=== PATIENT | male | born 1990 | race Hispanic/Latino ===

== ENCOUNTER 2017-04-21 08:57 | Emergency (ER) | payer BC ==
[2017-04-21 08:58] VITALS: BMI 31.8
[2017-04-21 09:21] VITALS: TEMP 97.9
[2017-04-21] MEDS ORDERED: Sodium Chloride 0.9% 500 ML IV STA (10:03)
--- NOTE | 2017-04-21 10:24 | ED PDOC ---
Arrival/HPI - General Chief Complaint: ENT Problem Time Seen by Provider: 04/21/17 10:01 Historian: Patient - History of Present Illness Narrative History of Present Illness (Text): 04/21/17 10:21 27 yo male w/o significant PMHx come in for evaluation of left earache gradually worsen for past 5 days. Pt reports, pain is localized over left ear, constant and for past few days worsen in intensity with radiation to parotid/ left facial area. Pt admits, was seen by PMD 3 days ago when was placed on Rx: Augment with initial improvement in left earache, developed mild left sided headache since yesterday, (+) chills. Otherwise, pt denies high fever, worse headache of life, visual changes, focal deficits, vertigo, dizziness, ear discharges, toothache, trismus, recent dental work, sore throat or tightness, neck pain or swelling, facial swelling, cough, CP, SOB, dyspnea, diaphoresis, denies any other active complaints. Ambulate to Ed for evaluation, appears in mild painful distress. Past Medical History - Provider Review Nursing Documentation Reviewed: Yes - Travel History Have you recently traveled outside [place] w/in the past 3 mons?: No - Past History Past History: No Previous - Infectious Disease Hx of Infectious Diseases: None - Tetanus Immunization Tetanus Immunization: Up to Date - Past Medical History Past Medical History: No Previous - Cardiac Hx Cardiac Disorders: No - Pulmonary Hx Respiratory Disorders: No - Neurological Hx Neurological Disorder: No - HEENT Hx HEENT Disorder: No - Renal Hx Renal Disorder: No - Endocrine/Metabolic Hx Endocrine Disorders: No - Hematological/Oncological Hx Blood Disorders: Yes Hx Hepatitis C: Yes - Integumentary Hx Dermatological Disorder: No Hx Basal Cell Carcinoma: No - Musculoskeletal/Rheumatological Hx Musculoskeletal Disorders: Yes Hx Falls: No Hx Fractures: Yes (job related injury fx r thumb 1 yr ago) - Gastrointestinal Hx Gastrointestinal Disorders: No - Genitourinary/Gynecological Hx Genitourinary Disorders: No - Psychiatric Hx Psychophysiologic Disorder: No Hx Depression: No Hx Emotional Abuse: No Hx Physical Abuse: No Hx Substance Use: Yes - Past Surgical History Past Surgical History: No Previous - Anesthesia Hx Anesthesia: No - Suicidal Assessment Feels Threatened In Home Enviroment: No Family/Social History - Physician Review Nursing Documentation Reviewed: Yes Family/Social History: No Known Family HX Smoking Status: Heavy Smoker > 10 Cigarettes Daily Hx Alcohol Use: No Hx Substance Use: Yes Substance used: heroin, past history Hx Substance Use Treatment: No Allergies/Home Meds Allergies/Adverse Reactions: Allergies No Known Allergies Allergy (Verified 04/21/17 09:21) Home Medications: Home Meds Medication Instructions Recorded Confirmed Amoxicillin 875 mg PO BID 04/21/17 04/21/17 Review of Systems - Review of Systems Constitutional: Normal Eyes: Normal ENT: Hearing Changes, Other (Left earache). absent: Tinnitus, TMJ Pain, Voice Changes, Sore Throat, Rhinorrhea Respiratory: Normal Cardiovascular: Normal Gastrointestinal: Normal Genitourinary Male: Normal Musculoskeletal: Normal Skin: Normal Neurological: Normal Endocrine: Normal Hemo/Lymphatic: Normal Psychiatric: Normal Physical Exam Vital Signs Reviewed: Yes Vital Signs Temp Pulse Resp BP Pulse Ox 04/21/17 12:46 78 17 145/89 100 04/21/17 09:16 97.9 F 80 18 147/91 H 97 Temperature: Afebrile Blood Pressure: Hypertensive Pulse: Regular Respiratory Rate: Normal Appearance: Positive for: Well-Appearing, Non-Toxic Pain Distress: Moderate (pain) Mental Status: Positive for: Alert and Oriented X 3 - Systems Exam Head: Present: Normocephalic Conjunctiva: Present: Normal Ears: Present: Normal (Right ear), Other (Left ear: (+) mod ear canal edema with scant yellowish discharges, unable to visalize TM. Tenderness over left tragus > Left mastoid tenderness. no erythema, no facial assymetry.) Mouth: Present: Moist Mucous Membranes, Normal Lips, Normal Teeth. No: Drooling , Trismus Pharnyx: Present: Other (uvula midline, no edema.). No: ERYTHEMA, EXUDATE, TONSILS ENLARGED, Strider Nose (Internal): Present: Normal Inspection Neck: Present: Trachea Midline. No: Meningeal Signs, MIDLINE TENDERNESS, JVD, Lymphadenopathy, Bruit Respiratory/Chest: Present: Clear to Auscultation, Good Air Exchange. No: Respiratory Distress, Accessory Muscle Use Cardiovascular: Present: Regular Rate and Rhythm, Normal S1, S2. No: Murmurs Abdomen: Present: Normal Bowel Sounds. No: Tenderness, Distention, Peritoneal Signs Upper Extremity: Present: Normal ROM, NORMAL PULSES. No: Deformity Lower Extremity: Present: Normal ROM. No: Edema, Deformity Neurological: Present: GCS=15, Speech Normal Skin: Present: Warm, Dry, Normal Color. No: Rashes Psychiatric: Present: Alert, Oriented x 3, Normal Concentration Medical Decision Making ED Course and Treatment: 04/21/17 On re-evaluation, pt is afebrile, hemodynamicaly stable. Non-toxic. Pt reports, moderate improvement in Left ear pain. NO facial edema or gross facial asymmetry noted. PulseOx 97% RA Head: AT/NC ENT: exam c/w left otitis media r/o otitis external. Minimal Left mastoid tenderness, no edema, no erythema. uvula midline, no edema. neck: Supple, (-) meningeal sign. Lungs: C TA B/L, BS equal B/L CVS: (+)S1S2, reg. Abd: benign, (-) guarding, (-) rebound. Neuorlogicaly intact. Blood work review and appears normal. Imaging review and c/w clinical diagnosis. Case discussed with ENT-on-call , recommend change in anx to Cipro oral and otic solution with discharge and outpt f/u. Results review and discussed with pt. Pt advised on course of ds and ref. to f/u with ENT in 2-3 days for re-eval. return to ED if any worsening or new changes. - Lab Interpretations Lab Results: 04/21/17 10:37 04/21/17 10:37 Lab Results 04/21/17 10:37: Sodium 140, Potassium 4.3, Chloride 103, Carbon Dioxide 28, Anion Gap 13, BUN 13, Creatinine 0.9, Est GFR ( Amer) > 60, Est GFR (Non- Af Amer) > 60, Random Glucose 111 H, Calcium 9.7 04/21/17 10:37: Urine Color Yellow, Urine Appearance Clear, Urine pH 6.0, Ur Specific [place] 1.025, Urine Protein Negative, Urine Glucose (UA) Negative, Urine Ketones Negative, Urine Blood Negative, Urine Nitrate Negative, Urine Bilirubin Negative, Urine Urobilinogen 0.2, Ur Leukocyte Esterase Negative 04/21/17 10:37: WBC 8.9 D, RBC 5.54, Hgb 15.7, Hct 45.4, MCV 81.9, MCH 28.3, MCHC 34.6, RDW 13.0, Plt Count 242, MPV 9.0, Gran % 73.1 H, Lymph % (Auto) 18.2 L, [place] % (Auto) 7.4 H, Eos % (Auto) 1.1 L, Baso % (Auto) 0.2, Gran # 6.50, Lymph # 1.6, [place] # 0.7 H, Eos # 0.1, Baso # 0.02 I have reviewed the lab results: Yes Interpretation: All labs normal - RAD Interpretation Radiology Orders: 04/21/17 10:02 MASTOIDS W/O CONTRAST [CT] Stat ccession No. : [id number] Patient Name / ID : HETAL CHEATHAM / [id number] Exam Date : 04/21/2017 10:31:09 ( Approved ) Study Comment : Sex / Age : M / 27Y Creator : Vanessa Billy MD Dictator : Vanessa Billy MD Production Planner Scheduler : Horticulture Supervisor : Vanessa Billy MD Approver2 : Report Date : 04/21/2017 11:55:58 My Comment : PROCEDURE: CT OF THE TEMPORAL BONES WITHOUT CONTRAST HISTORY: lEFT EARACHE AND MASTOID TENDERNESS COMPARISON: None available. TECHNIQUE: High resolution axial images of the temporal bones were obtained. Coronal and sagittal reformats were generated. Radiation dose: Total exam DLP = 795.29 mGy-cm. This CT exam was performed using one or more of the following dose reduction techniques: Automated exposure control, adjustment of the mA and/or kV according to patient size, and/or use of iterative reconstruction technique. FINDINGS: RIGHT TEMPORAL BONE: RIGHT MIDDLE EAR: Normal. RIGHT INNER EAR: Cochlea: Normal. Semicircular canals: Normal. RIGHT MASTOID AIR CELLS: Normal. RIGHT INTERNAL AUDITORY CANAL: Normal. RIGHT EXTERNAL AUDITORY CANAL: Normal. RIGHT VESTIBULAR AND COCHLEAR AQUEDUCT: Normal. OTHER FINDINGS: None. LEFT TEMPORAL BONE: LEFT MIDDLE EAR: There is abnormal soft tissue in the middle ear cavity lateral, superior and inferior to the ossicles. There is no evidence of ossicular erosion. The scutum is blunted. LEFT INNER EAR: Cochlea: Normal. Semicircular canals: Normal. LEFT MASTOID AIR CELLS: There is minimal fluid in the anterior mastoid air cells. There is no evidence of destruction of the inter mastoid septations. LEFT INTERNAL AUDITORY CANAL: Normal. LEFT EXTERNAL AUDITORY CANAL: There is abnormal soft tissue in the deep external auditory canal. The tympanic membrane is not well visualized. LEFT VESTIBULAR AND COCHLEAR AQUEDUCTS: Normal. OTHER FINDINGS: None. IMPRESSION: Findings are most compatible with acute and/or chronic left otitis media, otitis externa and mastoiditis. No evidence of coalescent mastoiditis. Clinical correlation and follow-up is advised. - Medication Orders Current Medication Orders: Discontinued Medications Sodium Chloride (Sodium Chloride 0.9%) 500 mls @ 1,000 mls/hr IV .Q30M STA Stop: 04/21/17 10:32 Last Admin: 04/21/17 10:18 Dose: 1,000 mls/hr Ketorolac Tromethamine (Toradol) 30 mg IVP STAT STA Stop: 04/21/17 10:05 Last Admin: 04/21/17 10:18 Dose: 30 mg Methylprednisolone (Solu-Medrol) 125 mg IVP STAT STA Stop: 04/21/17 10:05 Last Admin: 04/21/17 10:18 Dose: 125 mg Oxycodone/Acetaminophen (Percocet 5/325 Mg Tab) 1 tab PO STAT STA Stop: 04/21/17 11:32 Last Admin: 04/21/17 12:45 Dose: 1 tab Disposition/Present on Arrival - Present on Arrival Any Indicators Present on Arrival: No History of DVT/PE: No History of Uncontrolled Diabetes: No Urinary Catheter: No History of Decub. Ulcer: No History Surgical Site Infection Following: None - Disposition Have Diagnosis and Disposition been Completed?: Yes Diagnosis: Otitis media Disposition: HOME/ ROUTINE Disposition Time: 11:47 Patient Plan: Discharge Patient Problems: Current Active Problems Problem Status Onset Otitis media Acute Condition: STABLE Discharge Instructions (ExitCare): Otitis Media (ED), Mastoiditis (ED) Additional Instructions: CHANGE ANTIBIOTIC FROM AUGMENTIN TO CIPROFLOXACIN USE EAR DROPS PRESCRIBED KEEP LEFT EAR DRY, AVOID CONTACT WITH WATER GIVE A CALL ENT IN 1-2 DAYS TO SCHEDULED FOLLOW UP. RETURN TO ED IF ANY WORSENING OR NEW CHANGES. Prescriptions: Ciprofloxacin [Cipro] 1 tab PO BID #14 tab Ciprofloxacin/Hydrocortisone [Cipro Hc Otic Suspension] 1 drop BID #1 drops.susp traMADol [Ultram] 50 mg PO TID #7 tab Referrals: Sean Hurley MD [Primary Care Provider] - Follow up with primary Jose Angel Pringle DO [Staff Provider] - Follow up with primary Forms: [employer] (Georgian), WORK NOTE
[2017-04-21 10:42] LABS: BASO # 0.02 K/mm3 (0.0-2.0); BASO % 0.2 % (0.0-3.0); EOS # 0.1 (0.0-0.7); EOS % 1.1 % (1.5-5.0); GRAN # 6.5 (1.4-6.5); GRAN % 73.1 % (50.0-68.0); HEMATOCRIT 45.4 % (42.0-52.0); LYMPH # 1.6 (1.2-3.4); LYMPH % 18.2 % (22.0-35.0); MEAN CELL VOLUME 81.9 fl (80.0-105.0); MEAN CORPUSCULAR HEMOGLOBIN 28.3 pg (25.0-35.0); MEAN CORPUSCULAR HGB CONC 34.6 g/dl (31.0-37.0); MONO # 0.7 (0.1-0.6); MONO % 7.4 % (1.0-6.0); URINE BILIRUBIN NEGATIVE (NEGATIVE); URINE BLOOD NEGATIVE (NEGATIVE); URINE GLUCOSE (UA) NEGATIVE (NEGATIVE); URINE KETONE NEGATIVE (NEGATIVE); URINE LEUKOCYTE ESTERASE NEGATIVE Leu/uL (NEGATIVE); URINE PROTEIN NEGATIVE mg/dL (<30 mg/dL); URINE UROBILINOGEN 0.2 E.U./dL (<1 E.U./dL); WHITE BLOOD COUNT 8.9 10^3/ul (4.5-11.0)
[2017-04-21 10:43] LABS: URINE APPEARANCE CLEAR (CLEAR); URINE COLOR YELLOW (YELLOW)
[2017-04-21 10:52] LABS: BLOOD UREA NITROGEN 13 mg/dL (7-21); CALCIUM 9.7 mg/dL (8.4-10.5); CARBON DIOXIDE 28 mmol/L (21-33); CHLORIDE 103 mmol/L (98-107); GFR AFRICAN-AMERICAN > 60; GLUCOSE,RANDOM 111 mg/dL (70-110); POTASSIUM 4.3 mmol/L (3.6-5.0); SODIUM 140 mmol/L (132-148)
[2017-04-21] MEDS ORDERED: Oxycodone/Acetaminophen 5/325 mg Tab PO STA (11:31)
--- NOTE | 2017-04-21 11:57 | CT ---
PROCEDURE: CT OF THE TEMPORAL BONES WITHOUT CONTRAST HISTORY: lEFT EARACHE AND MASTOID TENDERNESS COMPARISON: None available. TECHNIQUE: High resolution axial images of the temporal bones were obtained. Coronal and sagittal reformats were generated. Radiation dose: Total exam DLP = 795.29 mGy-cm. This CT exam was performed using one or more of the following dose reduction techniques: Automated exposure control, adjustment of the mA and/or kV according to patient size, and/or use of iterative reconstruction technique. FINDINGS: RIGHT TEMPORAL BONE: RIGHT MIDDLE EAR: Normal. RIGHT INNER EAR: Cochlea: Normal. Semicircular canals: Normal. RIGHT MASTOID AIR CELLS: Normal. RIGHT INTERNAL AUDITORY CANAL: Normal. RIGHT EXTERNAL AUDITORY CANAL: Normal. RIGHT VESTIBULAR AND COCHLEAR AQUEDUCT: Normal. OTHER FINDINGS: None. LEFT TEMPORAL BONE: LEFT MIDDLE EAR: There is abnormal soft tissue in the middle ear cavity lateral, superior and inferior to the ossicles. There is no evidence of ossicular erosion. The scutum is blunted. LEFT INNER EAR: Cochlea: Normal. Semicircular canals: Normal. LEFT MASTOID AIR CELLS: There is minimal fluid in the anterior mastoid air cells. There is no evidence of destruction of the inter mastoid septations. LEFT INTERNAL AUDITORY CANAL: Normal. LEFT EXTERNAL AUDITORY CANAL: There is abnormal soft tissue in the deep external auditory canal. The tympanic membrane is not well visualized. LEFT VESTIBULAR AND COCHLEAR AQUEDUCTS: Normal. OTHER FINDINGS: None. IMPRESSION: Findings are most compatible with acute and/or chronic left otitis media, otitis externa and mastoiditis. No evidence of coalescent mastoiditis. Clinical correlation and follow-up is advised.
[2017-04-21 12:48] VITALS: BP 145/89; PULSE 78; RESP 17; O2SAT 100
== END 2017-04-21 12:48 | disposition home or self-care (01) ==
LOC: ED 08:57
DX: H66.92 Otitis media, unspecified, left ear (principal)
CPT/HCPCS: 70480; 80048; 81003; 85025; 96374; 96375; 99284; J1885; J2930; J7040

== ENCOUNTER 2017-06-14 20:06 | Emergency (ER) | payer BC, MEDICAID ==
[2017-06-14 20:06] VITALS: BMI 31.8
[2017-06-14 20:11] VITALS: TEMP 98.9
--- NOTE | 2017-06-14 20:26 | ED PDOC ---
Arrival/HPI - General Chief Complaint: Psychiatric Evaluation Time Seen by Provider: 06/14/17 20:10 - History of Present Illness Narrative History of Present Illness (Text): 27 y/o M BIBEMS after parents called for suspected overdose. Patient states takes heroin almost daily but not today, states took suboxone. Denies HI/SI/ hallucinations but with bizarre behavior in ED. Denies chest pain or fever. Past Medical History - Past History Past History: No Previous - Infectious Disease Hx of Infectious Diseases: None - Tetanus Immunization Tetanus Immunization: Up to Date - Past Medical History Past Medical History: No Previous - Cardiac Hx Cardiac Disorders: No - Pulmonary Hx Respiratory Disorders: No - Neurological Hx Neurological Disorder: No - HEENT Hx HEENT Disorder: No - Renal Hx Renal Disorder: No - Endocrine/Metabolic Hx Endocrine Disorders: No - Hematological/Oncological Hx Blood Disorders: Yes Hx Hepatitis C: Yes - Integumentary Hx Dermatological Disorder: No Hx Basal Cell Carcinoma: No - Musculoskeletal/Rheumatological Hx Musculoskeletal Disorders: Yes Hx Falls: No Hx Fractures: Yes (job related injury fx r thumb 1 yr ago) - Gastrointestinal Hx Gastrointestinal Disorders: No - Genitourinary/Gynecological Hx Genitourinary Disorders: No - Psychiatric Hx Psychophysiologic Disorder: Yes Hx Anxiety: Yes Hx Depression: Yes Hx Substance Use: Yes (heroin) - Past Surgical History Past Surgical History: No Previous - Anesthesia Hx Anesthesia: No - Suicidal Assessment Feels Threatened In Home Enviroment: No Family/Social History Family/Social History: No Known Family HX Smoking Status: Heavy Smoker > 10 Cigarettes Daily Hx Alcohol Use: No Hx Substance Use: Yes (heroin) Substance used: heroin, past history Hx Substance Use Treatment: No Allergies/Home Meds Allergies/Adverse Reactions: Allergies No Known Allergies Allergy (Verified 04/21/17 09:21) Home Medications: Home Meds Medication Instructions Recorded Confirmed Buprenorphine HCl/Naloxone HCl 1 each SL DAILY 06/14/17 06/14/17 [Suboxone 8 mg-2 mg Sl Film] Review of Systems - Physician Review All systems were reviewed & negative as marked: Yes - Review of Systems Constitutional: absent: Fevers Cardiovascular: absent: Chest Pain Physical Exam - Physical Exam Narrative Physical Exam (Text): Gen: NAD Head: NC Eyes: Pupils constricted ENT: MMM Neck: Supple. CV: Mild tachycardia. Resp: Breathing spontaneously. Abd: Soft, nontender. Ext: No swelling. Neuro: Awake, alert, no focal deficit. Vital Signs Temp Pulse Resp BP Pulse Ox 06/14/17 21:30 88 16 115/68 100 06/14/17 20:10 98.9 F 110 H 20 130/75 98 Medical Decision Making ED Course and Treatment: Will medically clear for psychiatric evaluation. CXR no acute disease. EKG Sinus rhyth, 102 bpm, no ST elevations. Evaluated by PES, recommend follow up with [facility] where patient is already seen. - Lab Interpretations Lab Results: 06/14/17 20:25 06/14/17 20:25 Lab Results 06/14/17 20:25: Alcohol, Quantitative < 10 06/14/17 20:25: Salicylates < 1 L, Acetaminophen < 10.0 L 06/14/17 20:25: Urine Opiates Screen Positive H, Urine Methadone Screen Negative , Ur Barbiturates Screen Negative, Ur Phencyclidine Scrn Negative, Ur Amphetamines Screen Negative, U Benzodiazepines Scrn Negative, U Oth Cocaine Metabols Positive H, U Cannabinoids Screen Negative 06/14/17 20:25: Sodium 140, Potassium 3.8, Chloride 104, Carbon Dioxide 28, Anion Gap 12, BUN 15, Creatinine 1.6 H, Est GFR ( Amer) > 60, Est GFR ( Non-Af Amer) 53, Random Glucose 136 H, Calcium 9.5, Total Bilirubin 0.7, AST 25 , ALT 29, Alkaline Phosphatase 55, Total Protein 7.8, Albumin 4.5, Globulin 3.3 , Albumin/Globulin Ratio 1.4 06/14/17 20:25: Urine Color Yellow, Urine Appearance Clear, Urine pH 6.0, Ur Specific [place] >= 1.030, Urine Protein 100 H, Urine Glucose (UA) Negative, Urine Ketones Negative, Urine Blood Negative, Urine Nitrate Negative, Urine Bilirubin Negative, Urine Urobilinogen 1.0 H, Ur Leukocyte Esterase Negative, Urine RBC 0 - 2, Urine WBC 0 - 2, Ur Epithelial Cells 3 - 4, Urine Bacteria Small, Urine Other Mucus 06/14/17 20:25: WBC 14.8 H D, RBC 5.29, Hgb 15.3, Hct 44.3, MCV 83.7, MCH 28.9, MCHC 34.5, RDW 13.3, Plt Count 274, MPV 9.5, Gran % 77.7 H, Lymph % (Auto) 15.3 L, [place] % (Auto) 6.6 H, Eos % (Auto) 0.3 L, Baso % (Auto) 0.1, Gran # 11.51 H, Lymph # 2.3, [place] # 1.0 H, Eos # 0.0, Baso # 0.02 - RAD Interpretation Radiology Orders: 06/14/17 20:22 CHEST PORTABLE [RAD] Stat Disposition/Present on Arrival - Present on Arrival Any Indicators Present on Arrival: No History of DVT/PE: No History of Uncontrolled Diabetes: No Urinary Catheter: No History of Decub. Ulcer: No History Surgical Site Infection Following: None - Disposition Have Diagnosis and Disposition been Completed?: Yes Diagnosis: Opioid use disorder, moderate, dependence Disposition: HOME/ ROUTINE Disposition Time: 21:30 Patient Plan: Discharge Condition: STABLE Forms: [employer] (Italian)
[2017-06-14 20:50] LABS: BASO # 0.02 K/mm3 (0.0-2.0); BASO % 0.1 % (0.0-3.0); EOS % 0.3 % (1.5-5.0); GRAN # 11.51 (1.4-6.5); GRAN % 77.7 % (50.0-68.0); HEMATOCRIT 44.3 % (42.0-52.0); LYMPH # 2.3 (1.2-3.4); LYMPH % 15.3 % (22.0-35.0); MEAN CELL VOLUME 83.7 fl (80.0-105.0); MEAN CORPUSCULAR HEMOGLOBIN 28.9 pg (25.0-35.0); MEAN CORPUSCULAR HGB CONC 34.5 g/dl (31.0-37.0); MEAN PLATELET VOLUME 9.5 fl (7.0-11.0); MONO % 6.6 % (1.0-6.0); RED CELL DISTRIBUTION WIDTH 13.3 % (11.5-14.5); WHITE BLOOD COUNT 14.8 10^3/ul (4.5-11.0)
[2017-06-14 20:51] LABS: URINE BILIRUBIN NEGATIVE (NEGATIVE); URINE BLOOD NEGATIVE (NEGATIVE); URINE GLUCOSE (UA) NEGATIVE (NEGATIVE); URINE KETONE NEGATIVE (NEGATIVE); URINE LEUKOCYTE ESTERASE NEGATIVE Leu/uL (NEGATIVE); URINE PROTEIN 100 mg/dL (<30 mg/dL)
[2017-06-14 20:54] LABS: URINE APPEARANCE CLEAR (CLEAR); URINE BACTERIA SMALL (NEG); URINE COLOR YELLOW (YELLOW); URINE RBC 0 - 2 /hpf (0-2); URINE WBC 0 - 2 /hpf (0-6)
[2017-06-14 20:56] LABS: ALB/GLOB RATIO 1.4 (1.1-1.8); ALKALINE PHOSPHATASE 55 U/L (38-126); ALT/SGPT 29 U/L (7-56); AST/SGOT 25 U/L (17-59); BILIRUBIN,TOTAL 0.7 mg/dL (0.2-1.3); BLOOD UREA NITROGEN 15 mg/dL (7-21); CALCIUM 9.5 mg/dL (8.4-10.5); CARBON DIOXIDE 28 mmol/L (21-33); CHLORIDE 104 mmol/L (98-107); GFR AFRICAN-AMERICAN > 60; GLUCOSE,RANDOM 136 mg/dL (70-110); POTASSIUM 3.8 mmol/L (3.6-5.0); SODIUM 140 mmol/L (132-148); TOTAL PROTEIN 7.8 g/dL (5.8-8.3)
[2017-06-14 21:31] VITALS: O2SAT 100
[2017-06-14 22:47] VITALS: BP 134/92; PULSE 94; RESP 18
--- NOTE | 2017-06-15 09:35 | RAD ---
HISTORY: psych COMPARISON: Comparison is made to the previous CT of the chest dated 01/26/2014 FINDINGS: LUNGS: No active pulmonary disease. PLEURA: No significant pleural effusion identified, no pneumothorax apparent. CARDIOVASCULAR: Normal. OSSEOUS STRUCTURES: No significant abnormalities. VISUALIZED UPPER ABDOMEN: Normal. OTHER FINDINGS: None. IMPRESSION: No active disease.
--- NOTE | 2017-06-16 10:17 | CARD ---
APPROVED REPORT EKG Measurement Heart [id number] <Conclusion> Sinus tachycardia Incomplete right bundle branch block Borderline ECG
== END 2017-06-14 22:52 | disposition home or self-care (01) ==
LOC: ED 20:06
DX: F11.20 Opioid dependence, uncomplicated (principal); F17.210 Nicotine dependence, cigarettes, uncomplicated
CPT/HCPCS: 71010; 80053; 81001; 85025; 93005; 99284; G0480

== ENCOUNTER 2017-11-07 16:13 | Emergency (ER) | payer BC, MEDICAID ==
[2017-11-07 16:24] VITALS: BMI 32.5
--- NOTE | 2017-11-07 16:26 | ED PDOC ---
Arrival/HPI - General Time Seen by Provider: 11/07/17 16:19 Historian: Patient - History of Present Illness Narrative History of Present Illness (Text): 11/07/17 16:19 27 year old male, pmh including abscess, psychiatric history including drug abuse, nkda, biba with the police complaining of lt. hip and rt. rib pain s/p fall. Pt. currently arrested due to being push and caught for robbery?, fall on the lt. hip and rt. rib, walking on the scene, no hematuria, no nausea or vomiting, no rash, no night sweat, no palpitation, no chest pain or shortness of breath, no other medical or psychological complaints. Pt. has no homicidal or suicidal ideation, no auditory or visual hallucination. Past Medical History - Provider Review Nursing Documentation Reviewed: Yes - Past History Past History: No Previous - Infectious Disease Hx of Infectious Diseases: None - Tetanus Immunization Tetanus Immunization: Up to Date - Past Medical History Past Medical History: No Previous - Cardiac Hx Cardiac Disorders: No Hx Hypertension: No - Pulmonary Hx Tuberculosis: No - Neurological HX Cerebrovascular Accident: No Hx Seizures: No - HEENT Hx HEENT Disorder: No - Renal Hx Renal Disorder: No - Endocrine/Metabolic Hx Endocrine Disorders: No - Hematological/Oncological Hx Cancer: No - Integumentary Hx Dermatological Disorder: No Hx Basal Cell Carcinoma: No - Musculoskeletal/Rheumatological Hx Musculoskeletal Disorders: Yes Hx Falls: No Hx Fractures: Yes (job related injury fx r thumb 1 yr ago) - Gastrointestinal Hx Gastrointestinal Disorders: No - Genitourinary/Gynecological Hx Sexually Transmitted Diseases: No - Psychiatric Hx Psychophysiologic Disorder: Yes Hx Anxiety: Yes Hx Depression: Yes Hx Substance Use: Yes (heroin) - Past Surgical History Past Surgical History: No Previous - Anesthesia Hx Anesthesia: No - Suicidal Assessment Feels Threatened In Home Enviroment: No Family/Social History - Physician Review Nursing Documentation Reviewed: Yes Family/Social History: Unknown Family HX Smoking Status: Heavy Smoker > 10 Cigarettes Daily Hx Alcohol Use: No Hx Substance Use: Yes (heroin) Substance used: heroin, past history Hx Substance Use Treatment: No Allergies/Home Meds Allergies/Adverse Reactions: Allergies No Known Allergies Allergy (Verified 04/21/17 09:21) Home Medications: Home Meds Medication Instructions Recorded Confirmed Buprenorphine HCl/Naloxone HCl 1 each SL DAILY 06/14/17 06/14/17 [Suboxone 8 mg-2 mg Sl Film] Review of Systems - Review of Systems Constitutional: absent: Fatigue, Fevers Eyes: absent: Vision Changes ENT: absent: Hearing Changes Respiratory: absent: SOB, Cough Cardiovascular: absent: Chest Pain Gastrointestinal: absent: Abdominal Pain, Nausea, Vomiting Musculoskeletal: Arthralgias. absent: Back Pain, Myalgias Skin: absent: Rash, Pruritis Neurological: absent: Headache, Dizziness Psychiatric: absent: Anxiety, Depression Physical Exam Vital Signs Reviewed: Yes Vital Signs Temp Pulse Resp BP Pulse Ox 11/07/17 17:33 80 18 11/07/17 16:49 98.2 F 100 H 18 138/78 95 Temperature: Afebrile Blood Pressure: Normal Pulse: Regular Respiratory Rate: Normal Appearance: Positive for: Well-Appearing, Non-Toxic, Comfortable Pain Distress: Mild Mental Status: Positive for: Alert and Oriented X 3 - Systems Exam Head: Present: Atraumatic, Normocephalic. No: Tenderness, Contusion, Swelling, Ecchymosis, Abrasion, Laceration, Other Pupils: Present: PERRL Extroacular Muscles: Present: EOMI Conjunctiva: Present: Normal Mouth: Present: Moist Mucous Membranes Nose (External): Present: Atraumatic. No: Abrasion, Contusion Neck: Present: Normal Range of Motion, Trachea Midline. No: MIDLINE TENDERNESS , Paraspinal Tenderness, Lymphadenopathy Respiratory/Chest: Present: Clear to Auscultation, Good Air Exchange, Other ( mild +ttp on the rt. anterior midclavicular rib cage region, no abrasion or laceration, skin intact, FROM, no cva tenderness). No: Respiratory Distress, Accessory Muscle Use Cardiovascular: Present: Regular Rate and Rhythm, Normal S1, S2. No: Murmurs Abdomen: No: Tenderness, Distention, Peritoneal Signs, Rebound, Guarding Rectal: Present: Other (Pt. refused examination) Genitourinary Male: Present: Other (Pt. refused examination) Back: Present: Normal Inspection. No: Midline Tenderness, Paraspinal Tenderness , Decubitus Ulcer Upper Extremity: Present: Normal Inspection, Normal ROM, Neurovascularly Intact. No: Cyanosis, Edema, Deformity Lower Extremity: Present: Normal Inspection, Normal ROM, Capillary Refill < 2 s , Other (Lt. hip: mild +ttp on the lt. hip region, no ecchymosis, FROM without limitation, sensation intact, motor 5/5, +DPPT pulses, bearing weight. ). No: Edema, Deformity Neurological: Present: GCS=15, CN II-XII Intact, Speech Normal, Motor Func Grossly Intact, Gait Normal, Memory Normal Skin: Present: Warm, Dry, Normal Color. No: Rashes Psychiatric: Present: Alert, Oriented x 3, Normal Insight, Normal Concentration Medical Decision Making ED Course and Treatment: 11/07/17 16:33 -motrin -xrays -observe and reassess 11/07/17 17:25 -Rt. rib and chest xray show no acute findings. -Rt. hip and pelvis xray show no acute findings. -Pt. has no focal neurological deficits, feels much better. -Pt. is medically clear and stable at this time for the incarceration. Discharge home with naproxen, bed rest, ice compression, follow up with your own pmd and orthopedic within 2 days, return to the ER for any new or worsening signs or symptoms. - RAD Interpretation Radiology Orders: 11/07/17 16:26 CHEST TWO VIEWS (PA/LAT) [RAD] Stat HIP MIN 2V W/ PELVIS LT [RAD] Stat RIBS RIGHT [RAD] Stat -Rt. rib and chest xray: Unremarkable radiographs of the chest, as visualized and right ribs. No right rib fracture. -Rt. hip and pelvis xray: Normal left hip radiographs. Dubbing Machine Operator: Radiologist - Medication Orders Current Medication Orders: Discontinued Medications Ibuprofen (Motrin Tab) 600 mg PO STAT STA Stop: 11/07/17 16:27 Last Admin: 11/07/17 16:48 Dose: 600 mg MAR Pain/Vitals Document 11/07/17 16:48 SRE (Rec: 11/07/17 16:48 SRE [id number]) Pain Reassessment Is This A Pain ReAssessment? Yes Sleep Is patient sleeping during reassessment? No Presence of Pain Presence of Pain Yes Pain Scale Used Pain Scale Used Numeric Location Pain Location Body Site Hip Description Intermittent Intensity 6 Scale Used Numeric - PA / API PRODUCT MANAGER / Resident Statement MD/DO has reviewed & agrees with the documentation as recorded. Disposition/Present on Arrival - Present on Arrival Any Indicators Present on Arrival: No History of DVT/PE: No History of Uncontrolled Diabetes: No Urinary Catheter: No History of Decub. Ulcer: No History Surgical Site Infection Following: None - Disposition Have Diagnosis and Disposition been Completed?: Yes Diagnosis: Fall, Arthralgia Disposition: HOME/ ROUTINE Disposition Time: 16:33 Patient Plan: Discharge Condition: GOOD Additional Instructions: -Pt. is medically clear and stable at this time for the incarceration. Discharge home with naproxen, bed rest, ice compression, follow up with your own pmd and orthopedic within 2 days, return to the ER for any new or worsening signs or symptoms. Prescriptions: Naproxen 500 mg PO BID #20 tab Referrals: Kermit Waldrop MD [Staff Provider] - Follow up with primary Forms: WORK NOTE
[2017-11-07 17:37] VITALS: BP 138/78; PULSE 80; RESP 18; TEMP 98.2; O2SAT 95
--- NOTE | 2017-11-07 18:25 | RAD ---
HISTORY: fall, medical clearance COMPARISON: 06/14/2017 TECHNIQUE: Chest PA and lateral FINDINGS: LUNGS: No active pulmonary disease. PLEURA: No significant pleural effusion identified. No pneumothorax apparent. CARDIOVASCULAR: No radiographic findings to suggest acute or significant cardiovascular disease. OSSEOUS STRUCTURES: No significant abnormalities. VISUALIZED UPPER ABDOMEN: Normal. OTHER FINDINGS: None. IMPRESSION: No active disease. No significant interval change compared to the prior examination(s). Concordant results with the preliminary interpretation rendered by the emergency department physician procedure.
--- NOTE | 2017-11-07 18:26 | RAD ---
PROCEDURE: Radiographs of the Chest and Right Ribs. HISTORY: rt. rib pain s/p fall COMPARISON: None available. TECHNIQUE: Frontal radiograph of the chest and multiple oblique radiographs of the right ribs were obtained. FINDINGS: RIGHT RIBS: No fracture or focal lesion visualized. LUNGS: Clear. PLEURA: No pneumothorax or pleural fluid. CARDIOVASCULAR: Normal sized heart. No pulmonary vascular congestion. OTHER FINDINGS: None. IMPRESSION: Unremarkable radiographs of the chest, as visualized and right ribs. No right rib fracture. Concordant results with the preliminary interpretation rendered by the emergency department physician procedure.
--- NOTE | 2017-11-07 18:27 | RAD ---
PROCEDURE: Left Hip X-ray Radiographs. HISTORY: Lt. hip pain s/p fall COMPARISON: None. FINDINGS: BONES: Normal. No fracture. JOINTS: Normal. SOFT TISSUES: Normal. OTHER FINDINGS: None. IMPRESSION: Normal left hip radiographs. Concordant results with the preliminary interpretation rendered by the emergency department physician procedure.
== END 2017-11-07 17:45 | disposition home or self-care (01) ==
LOC: ED 16:13
DX: M25.552 Pain in left hip (principal); R07.81 Pleurodynia; W19.XXXA Unspecified fall, initial encounter; Y92.9 Unspecified place or not applicable; Z65.3 Problems related to other legal circumstances

== ENCOUNTER 2018-05-11 16:35 | Inpatient (IN) | payer MEDICAID ==
[2018-05-11] MEDS ORDERED: Vancomycin 1gm in NS 250ml 1 GM/250 ML BAG IVPB STA (16:58)
[2018-05-11] MEDS ORDERED: Piperacillin/Tazobact 3.375 gm 100 ML IVPB STA (16:58)
--- NOTE | 2018-05-11 17:00 | ED PDOC ---
Arrival/HPI - General Time Seen by Provider: 05/11/18 16:51 Historian: Patient - History of Present Illness Narrative History of Present Illness (Text): 05/11/18 16:56 28 y/o, male, pmh including cellulitis and abscess from the IV drug abuse heroine, nkda, c/o rt. arm pain and swelling x 3 days after heroine injection IV. Pt. stated that he has history of drug abuse of heroine injection, last injection which he missed the vein and resulted the pain and swelling with redness, no difficulty bending or extending the rt. elbow/wrist. Pt. has no fever or chills, no night sweat, no dizziness, no change in vision, no rash, no other medical or psychological complaints. I reviewed the triage nursing note, there is discrepancy which the patient doesn't complaint about any rash on the chin. Pt. disagreed with the triage as well. Past Medical History - Provider Review Nursing Documentation Reviewed: Yes - Past History Past History: No Previous - Infectious Disease Hx of Infectious Diseases: None - Tetanus Immunization Tetanus Immunization: Up to Date - Past Medical History Past Medical History: No Previous - Cardiac Hx Cardiac Disorders: No Hx Hypertension: No - Pulmonary Hx Tuberculosis: No - Neurological HX Cerebrovascular Accident: No Hx Seizures: No - HEENT Hx HEENT Disorder: No - Renal Hx Renal Disorder: No - Endocrine/Metabolic Hx Endocrine Disorders: No - Hematological/Oncological Hx Cancer: No - Integumentary Hx Dermatological Disorder: No Hx Basal Cell Carcinoma: No - Musculoskeletal/Rheumatological Hx Musculoskeletal Disorders: Yes Hx Falls: No Hx Fractures: Yes (job related injury fx r thumb 1 yr ago) - Gastrointestinal Hx Gastrointestinal Disorders: No - Genitourinary/Gynecological Hx Sexually Transmitted Diseases: No - Psychiatric Hx Psychophysiologic Disorder: Yes Hx Anxiety: Yes Hx Depression: Yes Hx Substance Use: Yes (heroin) - Past Surgical History Past Surgical History: No Previous - Anesthesia Hx Anesthesia: No - Suicidal Assessment Feels Threatened In Home Enviroment: No Family/Social History - Physician Review Nursing Documentation Reviewed: Yes Family/Social History: Unknown Family HX Smoking Status: Heavy Smoker > 10 Cigarettes Daily Hx Alcohol Use: No Hx Substance Use: Yes (heroin) Substance used: heroin, past history Hx Substance Use Treatment: No Allergies/Home Meds Allergies/Adverse Reactions: Allergies No Known Allergies Allergy (Verified 09/18/17 09:21) Home Medications: Home Meds Medication Instructions Recorded Confirmed Buprenorphine HCl/Naloxone HCl 1 each SL DAILY 06/14/17 06/14/17 [Suboxone 8 mg-2 mg Sl Film] Review of Systems - Review of Systems Constitutional: absent: Fatigue, Fevers Eyes: absent: Vision Changes ENT: absent: Hearing Changes Respiratory: absent: SOB, Cough Cardiovascular: absent: Chest Pain Gastrointestinal: absent: Abdominal Pain, Nausea, Vomiting Musculoskeletal: absent: Arthralgias, Back Pain Skin: Rash, Skin Lesions, Abscess, Cellulitis. absent: Pruritis, Laceration, Ulcer Psychiatric: absent: Anxiety, Depression, Suicidal Ideation Physical Exam - Systems Exam Head: Present: Atraumatic, Normocephalic Pupils: Present: PERRL Extroacular Muscles: Present: EOMI Conjunctiva: Present: Normal Mouth: Present: Moist Mucous Membranes Neck: Present: Normal Range of Motion Respiratory/Chest: Present: Clear to Auscultation, Good Air Exchange. No: Respiratory Distress, Accessory Muscle Use Cardiovascular: Present: Regular Rate and Rhythm, Normal S1, S2. No: Murmurs Abdomen: No: Tenderness, Distention, Peritoneal Signs Back: Present: Normal Inspection Upper Extremity: Present: Normal Inspection, Other (Rt. UE: visible approx. [id number] on the rt. anterior cubital region with fluctuancy approx. 3cm diameter noted, mild streaking to the forearm region, +radial pulse, capillary refill< 2 seconds, neurovascular intact. ). No: Cyanosis, Edema Lower Extremity: Present: Normal Inspection. No: Edema Neurological: Present: GCS=15, CN II-XII Intact, Speech Normal Skin: Present: Warm, Dry, Normal Color. No: Rashes Psychiatric: Present: Alert, Oriented x 3, Normal Insight, Normal Concentration Medical Decision Making ED Course and Treatment: 05/11/18 17:04 -Labs/blood culture and vbg -Rt. elbow xray -RUE Venuous doppler -IV vancomycin/toradol -I reviewed the triage nursing note, there is discrepancy which the patient doesn't complaint about any rash on the chin. Pt. disagreed with the triage as well. I clinically don't see or palpate any rash or abscess on the chin. -Observe and reassess 05/11/18 19:23 -Rt. elbow xray show no fracture/dislocation -RUE Venuous doppler: as preliminary report, no acute DVT. There is hematoma (I clean the skin with saline and betadine, use 18 gauge needle, there is purulant abscess and not hematoma) -Labs are non-significant except wbc 17.2 (blood cultures ordered), lactic acid within normal limit -Drug screen ordered and pending result -Pt. agreed to be admitted for IV antibiotic and wound care. Procedure: Incision & Drainage Performed by the emergency provider CLARICE Contreras Indication: Abscess Location: Rt. forearm/antecubital Preparation: The area was prepped and draped in the usual sterile fashion and was cleansed with normal saline 1000cc and clean with betadine. Local infiltration of Lidocaine 1% without Epi 0.5cc was used for anesthesia. Procedure: The most fluctuant portion of the abscess was incised with a #11 scalpel 0.75cm incision Approximately 10 mL of purulant abscess drained. The abscess was packed 1/4" packing. A dressing was applied by in with xerofoam and gauze dressing. Post-Procedure: On exam the abscess is notably fluctuant resolved and swelling resolved, feeling much better. The patient tolerated the procedure well, and there were no complications. Cultured: {NO as he is receiving empiric treatment with blood cultures} 05/11/18 19:47 -All labs and radiology result discussed with the patient, awared of the result and agreed on the plan of care. -Case discussed and admitted to Dr. Billy and nuclear medicine medical director awared, he will f ollow up on the pending labs/radiology study and surgical consult as needed. - RAD Interpretation Radiology Orders: Rt. elbow: no fracture or bone destruction RUE Venuous doppler: as per preliminary report, no acute DVT Parts And Service Manager: Radiologist - PA / TANDEM OPERATOR / Resident Statement / has reviewed & agrees with the documentation as recorded. Disposition/Present on Arrival - Present on Arrival Any Indicators Present on Arrival: No History of DVT/PE: No History of Uncontrolled Diabetes: No Urinary Catheter: No History of Decub. Ulcer: No History Surgical Site Infection Following: None - Disposition Have Diagnosis and Disposition been Completed?: Yes Diagnosis: Drug abuse, Cellulitis and abscess of upper arm and forearm, Leukocytosis (leucocytosis) Disposition: HOSPITALIZED Disposition Time: 19:54 Patient Plan: Observation Patient Problems: Current Active Problems Problem Status Onset Cellulitis and abscess of upper arm and forearm Acute Drug abuse Acute Condition: STABLE
[2018-05-11 18:58] LABS: VENOUS BLOOD GAS PO2 33 mm/Hg (30-55); VENOUS BLOOD PH 7.26 (7.32-7.43)
[2018-05-11 19:02] LABS: BASO # 0.01 K/mm3 (0.0-2.0); BASO % 0.1 % (0.0-3.0); EOS % 0.1 % (1.5-5.0); GRAN # 14.89 (1.4-6.5); GRAN % 86.5 % (50.0-68.0); HEMOGLOBIN 16.7 g/dL (14.0-18.0); LYMPH # 1.4 (1.2-3.4); LYMPH % 7.9 % (22.0-35.0); MEAN CELL VOLUME 86.3 fl (80.0-105.0); MEAN CORPUSCULAR HEMOGLOBIN 29.3 pg (25.0-35.0); MEAN CORPUSCULAR HGB CONC 33.9 g/dl (31.0-37.0); MEAN PLATELET VOLUME 9.6 fl (7.0-11.0); MONO # 0.9 (0.1-0.6); MONO % 5.4 % (1.0-6.0); RBC 5.7 10^6/uL (3.5-6.1); RED CELL DISTRIBUTION WIDTH 13.1 % (11.5-14.5); WHITE BLOOD COUNT 17.2 10^3/ul (4.5-11.0)
[2018-05-11 19:07] LABS: ALB/GLOB RATIO 1.1 (1.1-1.8); ALBUMIN 4.6 g/dL (3.0-4.8); ALT/SGPT 41 U/L (7-56); AST/SGOT 39 U/L (17-59); BLOOD UREA NITROGEN 15 mg/dL (7-21); CALCIUM 9.4 mg/dL (8.4-10.5); GFR NON-AFRICAN AMERICAN 56
--- NOTE | 2018-05-11 19:29 | CP.PCM.HP ---
<Verna Abrams - Last Filed: 05/11/18 20:39> History of Present Illness - History of Present Illness History of Present Illness: 28yo male PMHx IVDA, depression, and insomnia presents with R elbow pain and swelling that started 3 days ago. Patient reported he was trying to inject his arm with heroin but missed and injected his elbow instead. Patient reported coming in today as his pain was getting worse and not improving. He stated the pain was 10/10 in intensity and described it as sharp, stabbing, throbbing, burning, and constant. He had no difficulty flexing/extending his RUE. Patient reports this is the second time he has had an abscess in his arms [last one was in his left hand a couple years ago] secondary to IVDA. Patient admitted to some subjective fevers/chills but did not take a temp at home. He also admitted to nausea, dizziness, constipation [has not had a BM in 1-2days], and some chest pressure with no associated palpitations/SOB, and a nonproductive cough. He denied other complaints of headaches, vomiting, dysuria/burning on urination, pain/swelling in his legs b/l. Patient denied any recent travel/sick contacts. PMHx: depression, insomnia, IVDA PSurgHx: R thumb fracture 2012 PHospitalization: multiple overdoses- never been intubated Meds: trazodone? lexapro? - needs to be confirmed by pharmacy ALL: NKDA SocHx: admits to EtOH use in the past [sober for 1 year] used to drink beers and shots; smokes 1ppd for 10 years [does not want to quit]; injects 2-3 bags of heroin once/day since 2014. Last use of heroin was day prior to admission on 05/10/18- Patient was planning on going to rehab today [[facility] in [place]]. Patient works in [employer] and lives at home with parents and his brother. FamHx: noncontributory PMD: none Psychiatrist: does not know the name but goes to [facility] [facility] [place]: [employer] ROS: admits: fever, chills, dizziness, chest pressure, nonproductive cough, constipa tion, RUE pain and swelling denies: headaches, palpitations, SOB, cough, urinary complaints, b/l LE pain/swelling Present on Admission - Present on Admission Any Indicators Present on Admission: No Review of Systems - Review of Systems All systems: reviewed and no additional remarkable complaints except Review of Systems: as per HPI Past Patient History - Infectious Disease Hx of Infectious Diseases: None - Tetanus Immunizations Tetanus Immunization: Up to Date - Past Social History Smoking Status: Heavy Smoker > 10 Cigarettes Daily - CARDIAC Hx Cardiac Disorders: No Hx Hypertension: No - PULMONARY Hx Tuberculosis: No - NEUROLOGICAL HX Cerebrovascular Accident: No Hx Seizures: No - HEENT Hx HEENT Problems: No - RENAL Hx Chronic Kidney Disease: No - ENDOCRINE/METABOLIC Hx Endocrine Disorders: No - HEMATOLOGICAL/ONCOLOGICAL Hx Cancer: No - INTEGUMENTARY Hx Dermatological Problems: No Hx Basil Cell: No - MUSCULOSKELETAL/RHEUMATOLOGICAL Hx Musculoskeletal Disorders: Yes Hx Falls: No Hx Fractures: Yes (job related injury fx r thumb 1 yr ago) - GASTROINTESTINAL Hx Gastrointestinal Disorders: No - GENITOURINARY/GYNECOLOGICAL Hx Sexually Transmitted Disorders: No - PSYCHIATRIC Hx Psychophysiologic Disorder: Yes Hx Anxiety: Yes Hx Depression: Yes Hx Substance Use: Yes (heroin) - SURGICAL HISTORY Hx Surgeries: No - ANESTHESIA Hx Anesthesia: No Meds Allergies/Adverse Reactions: Allergies Allergy/AdvReac Type Severity Reaction Status Date / Time No Known Allergies Allergy Verified 04/21/17 09:21 Physical Exam - Constitutional Appears: Non-toxic, No Acute Distress - Head Exam Head Exam: ATRAUMATIC, NORMAL INSPECTION, NORMOCEPHALIC - Eye Exam Eye Exam: EOMI, Normal appearance, PERRL. absent: Conjunctival injection, Scleral icterus Pupil Exam: NORMAL ACCOMODATION - ENT Exam ENT Exam: Mucous Membranes Moist - Neck Exam Neck exam: Positive for: Full Rom. Negative for: Lymphadenopathy - Respiratory Exam Respiratory Exam: Wheezes, NORMAL BREATHING PATTERN. absent: Accessory Muscle Use, Rales, Rhonchi, Respiratory Distress Additional comments: coarse breath sounds left lower lung - Cardiovascular Exam Cardiovascular Exam: Tachycardia, REGULAR RHYTHM, +S1, +S2 - GI/Abdominal Exam GI & Abdominal Exam: Normal Bowel Sounds, Soft. absent: Distended, Firm, Guarding, Rigid, Tenderness - Rectal Exam Rectal Exam: Deferred - Extremities Exam Extremities exam: Positive for: normal capillary refill, normal inspection, pedal pulses present. Negative for: pedal edema - Back Exam Back exam: NORMAL INSPECTION. absent: rash noted, tenderness - Neurological Exam Neurological exam: Alert, CN II-XII Intact, Oriented x3 - Psychiatric Exam Psychiatric exam: Anxious, Normal Affect - Skin Skin Exam: Dry, Normal Color, Warm Additional comments: R elbow dressing in place Results - Vital Signs Recent Vital Signs: Last Vital Signs Temp 98.8 F 05/11/18 17:13 Pulse 100 H 05/11/18 17:13 Resp 18 05/11/18 17:13 BP 117/60 05/11/18 17:13 Pulse Ox 96 05/11/18 17:13 - Labs Result Diagrams: 05/11/18 18:45 05/11/18 18:45 Labs: Laboratory Results - last 24 hr 05/11/18 05/11/18 05/11/18 18:45 18:45 18:45 WBC 17.2 H RBC 5.70 Hgb 16.7 Hct 49.2 MCV 86.3 MCH 29.3 MCHC 33.9 RDW 13.1 Plt Count 303 MPV 9.6 Gran % 86.5 H Lymph % (Auto) 7.9 L [place] % (Auto) 5.4 Eos % (Auto) 0.1 L Baso % (Auto) 0.1 Gran # 14.89 H Lymph # (Auto) 1.4 [place] # (Auto) 0.9 H Eos # (Auto) 0.0 Baso # (Auto) 0.01 pO2 33 VBG pH 7.26 L VBG pCO2 72.0 H* VBG HCO3 32.3 H VBG Total CO2 34.5 H VBG O2 Sat (Calc) 60.6 VBG Base Excess 3.0 H VBG Potassium 4.2 Sodium 138 134.0 Chloride 96 L 98.0 Glucose 118 H Lactate 1.2 FiO2 21.0 Potassium 4.1 Carbon Dioxide 30 Anion Gap 16 BUN 15 Creatinine 1.5 Est GFR ( Amer) > 60 Est GFR (Non-Af Amer) 56 Random Glucose 119 H Calcium 9.4 Total Bilirubin 0.8 AST 39 ALT 41 Alkaline Phosphatase 56 Total Protein 9.0 H Albumin 4.6 Globulin 4.3 Albumin/Globulin Ratio 1.1 Venous Blood Potassium 4.2 Assessment & Plan - Assessment and Plan (Free Text) Assessment: 28yo male PMHx IVDA, depression, and insomnia presents with R elbow pain and swelling that started 3 days ago. Patient had a bedside I&D of right forearm/antecubital area in the ER. Patient to be admitted to med/surg OBS for further management Plan: R antecubital cellulitis vs abscess secondary to IVDA -patient received 1 dose of Vanc and Zosyn in the ER -POD#0 bedside I&D in the ER -continue Vanc and Zosyn -Tylenol for fever -Tylenol q6h prn for pain [moderate] -Morphine 1mg ivp q8h prn for pain [severe] -EKG: sinus tachycardia -f/u blood cultures x 2 -f/u procalcitonin -f/u X-ray RUE consider MRI RUE if x-ray shows signs/concern for osteomyelitis -U/S RUE negative for DVT -consider Echo in light of IVDA and multiple hospitalizations for overdose and abscesses -ID consult Hx of IVDA -patient counseled thoroughly on risks of IVDA -f/u HIV 4th gen -f/u UDS -Drug/Alcohol counseling -Ativan 1mg q6 prn agitation Hx of Tobacco abuse -Nicoderm 1 patch td daily -patient counseled thoroughly on risks of smoking -f/u CXR Hx of Insomnia and Depression -patient reports he takes lexapro and an SSRI and a sleeping pill? needs confirmation by pharmacy Diet: Regular DVT ppx: SCDs Discussed with Dr. Wenceslao Abrams PGY3 <Apolonia Billy - Last Filed: 05/12/18 00:45> Results - Vital Signs Recent Vital Signs: Last Vital Signs Temp 99 F 05/11/18 22:14 Pulse 73 05/11/18 22:14 Resp 16 05/11/18 23:23 BP 112/57 L 05/11/18 22:14 Pulse Ox 95 05/11/18 22:14 - Labs Result Diagrams: 05/11/18 18:45 05/11/18 18:45 Labs: Laboratory Results - last 24 hr 05/11/18 05/11/18 05/11/18 18:45 18:45 18:45 WBC 17.2 H RBC 5.70 Hgb 16.7 Hct 49.2 MCV 86.3 MCH 29.3 MCHC 33.9 RDW 13.1 Plt Count 303 MPV 9.6 Gran % 86.5 H Lymph % (Auto) 7.9 L [place] % (Auto) 5.4 Eos % (Auto) 0.1 L Baso % (Auto) 0.1 Gran # 14.89 H Lymph # (Auto) 1.4 [place] # (Auto) 0.9 H Eos # (Auto) 0.0 Baso # (Auto) 0.01 pO2 33 VBG pH 7.26 L VBG pCO2 72.0 H* VBG HCO3 32.3 H VBG Total CO2 34.5 H VBG O2 Sat (Calc) 60.6 VBG Base Excess 3.0 H VBG Potassium 4.2 Sodium 138 134.0 Chloride 96 L 98.0 Glucose 118 H Lactate 1.2 FiO2 21.0 Potassium 4.1 Carbon Dioxide 30 Anion Gap 16 BUN 15 Creatinine 1.5 Est GFR ( Amer) > 60 Est GFR (Non-Af Amer) 56 Random Glucose 119 H Calcium 9.4 Total Bilirubin 0.8 AST 39 ALT 41 Alkaline Phosphatase 56 Total Protein 9.0 H Albumin 4.6 Globulin 4.3 Albumin/Globulin Ratio 1.1 Venous Blood Potassium 4.2 Influenza Typ A,B (EIA) 05/11/18 21:40 WBC RBC Hgb Hct MCV MCH MCHC RDW Plt Count MPV Gran % Lymph % (Auto) [place] % (Auto) Eos % (Auto) Baso % (Auto) Gran # Lymph # (Auto) [place] # (Auto) Eos # (Auto) Baso # (Auto) pO2 VBG pH VBG pCO2 VBG HCO3 VBG Total CO2 VBG O2 Sat (Calc) VBG Base Excess VBG Potassium Sodium Chloride Glucose Lactate FiO2 Potassium Carbon Dioxide Anion Gap BUN Creatinine Est GFR ( Amer) Est GFR (Non-Af Amer) Random Glucose Calcium Total Bilirubin AST ALT Alkaline Phosphatase Total Protein Albumin Globulin Albumin/Globulin Ratio Venous Blood Potassium Influenza Typ A,B (EIA) Negative for flu a/b Attending/Attestation - Attestation I have personally seen and examined this patient.: Yes I have fully participated in the care of the patient.: Yes I have reviewed all pertinent clinical information: Yes Notes (Text): 05/12/18 00:44 Patient was seen when she was in . Agree with history,physical examination,assessment and plan.
--- NOTE | 2018-05-11 20:32 | US ---
PROCEDURE: Right upper extremity venous US CLINICAL HISTORY: Arm pain and swelling Evaluate for deep venous thrombosis. PHYSICIAN(S): Kade Hurley M.D FINDINGS: The visualized rightinternal jugular vein is sonographically normal and compressible. No evidence of obstruction or thrombus is seen. The visualized segments of the right subclavian vein are patent with normal waveforms. No sonographic evidence of obstruction or thrombosis is seen. The visualized deep venous system of the proximal right upper extremity is sonographically normal and compressible. There is a 3.5 cm heterogeneous mass in the right antecubital space. The differential includes hematoma or infection. IMPRESSION: 1. No sonographic evidence for deep venous thrombosis in the visualized segments of the right upper extremity.
[2018-05-11 23:39] VITALS: BMI 33.2
[2018-05-12] MEDS: Piperacillin/Tazobact 3.375 gm 100 ML IVPB SCH ×4 (00:04→21:10)
[2018-05-12] MEDS: Morphine 2 mg/ml ISec IVP PRN ×2 (06:52→16:12)
--- NOTE | 2018-05-12 08:22 | RAD ---
Date of service: 05/11/2018 HISTORY: coughing COMPARISON: No prior. TECHNIQUE: Chest PA and lateral FINDINGS: LUNGS: No active pulmonary disease. PLEURA: No significant pleural effusion identified. No pneumothorax apparent. CARDIOVASCULAR: Normal. OSSEOUS STRUCTURES: No significant abnormalities. VISUALIZED UPPER ABDOMEN: Normal. OTHER FINDINGS: None. IMPRESSION: No active disease.
--- NOTE | 2018-05-12 08:28 | CP.PCM.CON ---
<Laura Felder - Last Filed: 05/12/18 12:52> History of Present Illness - History of Present Illness History of Present Illness: PGY-3 Resident ID consult note for Dr. Lara Reason for consult: right arm abscess Patient is a 28 y/o with PMHx of IVDA, depression and insomnia presenting with right elbow pain and infection. Patient injected heroin in the elbow. He noticed the redness and pain 2 days ago, and came in last night because the pain was getting worst. Denies fever or chills. No n/v or diarrhea. Admits to prior history of abscess and cellulites of the extremities due to IVDA. PMHx: IVDA, depression, insomnia PSHx: denies Social: admits to etoh in the past, IVDA with heroine, smokes 1 pack per day FMHx: non contributory Allergy: NKDA Home meds: as per chart Review of Systems - Constitutional Constitutional: absent: Chills, Fatigue, Fever - Cardiovascular Cardiovascular: absent: Chest Pain, Chest Pain at Rest, Dyspnea - Respiratory Respiratory: absent: Cough, Dyspnea - Gastrointestinal Gastrointestinal: absent: Abdominal Pain, Constipation, Diarrhea - Genitourinary Genitourinary: absent: Dysuria, Freq UTI - Musculoskeletal Musculoskeletal: Other (Right elbow pain.) - Integumentary Integumentary: Wounds - Psychiatric Psychiatric: Anxiety, Depression - Endocrine Endocrine: absent: Fatigue Past Patient History - Infectious Disease Hx of Infectious Diseases: None - Tetanus Immunizations Tetanus Immunization: Up to Date - Past Social History Smoking Status: Heavy Smoker > 10 Cigarettes Daily Alcohol: None Drugs: Denies Home Situation {Lives}: With Family - CARDIAC Hx Cardiac Disorders: No Hx Hypertension: No - PULMONARY Hx Tuberculosis: No - NEUROLOGICAL HX Cerebrovascular Accident: No Hx Seizures: No - HEENT Hx HEENT Problems: No - RENAL Hx Chronic Kidney Disease: No - ENDOCRINE/METABOLIC Hx Endocrine Disorders: No - HEMATOLOGICAL/ONCOLOGICAL Hx Cancer: No - INTEGUMENTARY Hx Dermatological Problems: No Hx Basil Cell: No - MUSCULOSKELETAL/RHEUMATOLOGICAL Hx Musculoskeletal Disorders: Yes Hx Falls: No Hx Fractures: Yes (job related injury fx r thumb 1 yr ago) - GASTROINTESTINAL Hx Gastrointestinal Disorders: No - GENITOURINARY/GYNECOLOGICAL Hx Sexually Transmitted Disorders: No - PSYCHIATRIC Hx Psychophysiologic Disorder: Yes Hx Anxiety: Yes Hx Depression: Yes Hx Substance Use: Yes - SURGICAL HISTORY Hx Surgeries: No - ANESTHESIA Hx Anesthesia: No Meds Allergies/Adverse Reactions: Allergies Allergy/AdvReac Type Severity Reaction Status Date / Time No Known Allergies Allergy Verified 04/21/17 09:21 - Medications Medications: Current Medications Acetaminophen (Tylenol 325mg Tab) 650 mg PO Q6H PRN PRN Reason: Fever >100.4 F Last Admin: 05/11/18 21:05 Dose: 650 mg Acetaminophen (Tylenol 325mg Tab) 650 mg PO Q6H PRN PRN Reason: Pain, moderate (4-7) Vancomycin HCl (Vancomycin 1gm) 1 gm in 250 mls @ 167 mls/hr IVPB Q12H PAM; Protocol Piperacillin Sod/Tazobactam Sod (Zosyn 3.375 In Ns 100ml) 100 mls @ 25 mls/hr IVPB Q8 PAM; Protocol Last Admin: 05/12/18 05:09 Dose: 25 mls/hr Lorazepam (Ativan) 1 mg IVP Q6H PRN; Protocol PRN Reason: Agitation Morphine Sulfate (Morphine) 1 mg IVP Q8H PRN PRN Reason: Pain, severe (8-10) Last Admin: 05/12/18 06:52 Dose: 1 mg Nicotine (Nicoderm Cq) 1 patch TD DAILY PAM Last Admin: 05/11/18 22:10 Dose: 1 patch Physical Exam - Constitutional Appears: No Acute Distress - Head Exam Head Exam: ATRAUMATIC, NORMAL INSPECTION, NORMOCEPHALIC - Eye Exam Eye Exam: Normal appearance - ENT Exam ENT Exam: Mucous Membranes Moist - Neck Exam Neck exam: Positive for: Normal Inspection - Respiratory Exam Respiratory Exam: Clear to Auscultation Bilateral, NORMAL BREATHING PATTERN. absent: Rales, Rhonchi, Wheezes, Respiratory Distress, Stridor - Cardiovascular Exam Cardiovascular Exam: REGULAR RHYTHM, RRR, +S1, +S2 - GI/Abdominal Exam GI & Abdominal Exam: Normal Bowel Sounds, Soft. absent: Distended, Firm, Guarding, Rebound, Rigid, Tenderness - Extremities Exam Extremities exam: Positive for: tenderness (right elbow) - Back Exam Back exam: NORMAL INSPECTION - Neurological Exam Neurological exam: Alert, Oriented x3 - Psychiatric Exam Psychiatric exam: Flat Affect - Skin Additional comments: Warm right antecubital wound, post drainage, with clean dressing Results - Vital Signs Recent Vital Signs: Last Vital Signs Temp 97.9 F 05/12/18 08:14 Pulse 61 05/12/18 08:14 Resp 20 05/12/18 08:14 BP 99/62 L 05/12/18 08:14 Pulse Ox 97 05/12/18 08:14 - Labs Result Diagrams: 05/12/18 08:00 05/12/18 08:00 Labs: Laboratory Results - last 24 hr 05/11/18 05/11/18 05/11/18 18:45 18:45 18:45 WBC 17.2 H RBC 5.70 Hgb 16.7 Hct 49.2 MCV 86.3 MCH 29.3 MCHC 33.9 RDW 13.1 Plt Count 303 MPV 9.6 Gran % 86.5 H Lymph % (Auto) 7.9 L [place] % (Auto) 5.4 Eos % (Auto) 0.1 L Baso % (Auto) 0.1 Gran # 14.89 H Lymph # (Auto) 1.4 [place] # (Auto) 0.9 H Eos # (Auto) 0.0 Baso # (Auto) 0.01 pO2 33 VBG pH 7.26 L VBG pCO2 72.0 H* VBG HCO3 32.3 H VBG Total CO2 34.5 H VBG O2 Sat (Calc) 60.6 VBG Base Excess 3.0 H VBG Potassium 4.2 Sodium 138 134.0 Chloride 96 L 98.0 Glucose 118 H Lactate 1.2 FiO2 21.0 Potassium 4.1 Carbon Dioxide 30 Anion Gap 16 BUN 15 Creatinine 1.5 Est GFR ( Amer) > 60 Est GFR (Non-Af Amer) 56 Random Glucose 119 H Calcium 9.4 Total Bilirubin 0.8 AST 39 ALT 41 Alkaline Phosphatase 56 Total Protein 9.0 H Albumin 4.6 Globulin 4.3 Albumin/Globulin Ratio 1.1 Venous Blood Potassium 4.2 Influenza Typ A,B (EIA) 05/11/18 21:40 WBC RBC Hgb Hct MCV MCH MCHC RDW Plt Count MPV Gran % Lymph % (Auto) [place] % (Auto) Eos % (Auto) Baso % (Auto) Gran # Lymph # (Auto) [place] # (Auto) Eos # (Auto) Baso # (Auto) pO2 VBG pH VBG pCO2 VBG HCO3 VBG Total CO2 VBG O2 Sat (Calc) VBG Base Excess VBG Potassium Sodium Chloride Glucose Lactate FiO2 Potassium Carbon Dioxide Anion Gap BUN Creatinine Est GFR ( Amer) Est GFR (Non-Af Amer) Random Glucose Calcium Total Bilirubin AST ALT Alkaline Phosphatase Total Protein Albumin Globulin Albumin/Globulin Ratio Venous Blood Potassium Influenza Typ A,B (EIA) Negative for flu a/b Assessment & Plan - Assessment and Plan (Free Text) Assessment: Patient is a 28 y/o with h/o IVDA, and depression presenting with: Right antecubital cellulites and abscess s/p I&D Plan: Patient had leukocytosis on admission, however resolved this morning. Afebrile now. Tmax 100.1 on presentation. Blood cultures sent, wound culture was not sent, 4th gen HIV ordered. Elbow x-ray with no acute findings. Right upper extremity u/s with no DVT. Continue with vanco and zosyn. Patient seen, examined and case discussed with Dr. Lara. - Date & Time Date: 05/12/18 Time: 13:00 <Ernesto Lara - Last Filed: 05/12/18 21:29> Meds - Medications Medications: Current Medications Acetaminophen (Tylenol 325mg Tab) 650 mg PO Q6H PRN PRN Reason: Pain, Mild (1-3) Docusate Sodium (Colace) 100 mg PO BID PAM Last Admin: 05/12/18 18:16 Dose: 100 mg Vancomycin HCl (Vancomycin 1gm) 1 gm in 250 mls @ 167 mls/hr IVPB Q12H PAM; Protocol Last Admin: 05/12/18 21:10 Dose: 167 mls/hr Sodium Chloride (Sodium Chloride 0.9%) 1,000 mls @ 100 mls/hr IV .Q10H PAM Last Admin: 05/12/18 21:11 Dose: 100 mls/hr Piperacillin Sod/Tazobactam Sod (Zosyn 3.375 In Ns 100ml) 100 mls @ 25 mls/hr IVPB Q8 PAM; Protocol Last Admin: 05/12/18 21:10 Dose: 25 mls/hr Lorazepam (Ativan) 1 mg IVP Q6H PRN; Protocol PRN Reason: Agitation Morphine Sulfate (Morphine) 1 mg IVP Q8H PRN PRN Reason: Pain, severe (8-10) Last Admin: 05/12/18 16:12 Dose: 1 mg Nicotine (Nicoderm Cq) 1 patch TD DAILY PAM Last Admin: 05/12/18 09:44 Dose: 1 patch Results - Vital Signs Recent Vital Signs: Last Vital Signs Temp 98.0 F 05/12/18 18:00 Pulse 63 05/12/18 18:00 Resp 20 05/12/18 18:00 BP 123/74 05/12/18 18:00 Pulse Ox 90 L 05/12/18 18:00 - Labs Result Diagrams: 05/12/18 08:00 05/12/18 08:00 Labs: Laboratory Results - last 24 hr 05/11/18 05/11/18 05/12/18 20:00 21:40 08:00 WBC 10.8 D RBC 4.80 Hgb 13.8 L D Hct 40.7 L MCV 84.8 MCH 28.8 MCHC 33.9 RDW 13.0 Plt Count 244 MPV 9.1 Gran % 70.9 H Lymph % (Auto) 18.5 L [place] % (Auto) 8.8 H Eos % (Auto) 1.7 Baso % (Auto) 0.1 Gran # 7.70 H Lymph # (Auto) 2.0 [place] # (Auto) 1.0 H Eos # (Auto) 0.2 Baso # (Auto) 0.01 Sodium Potassium Chloride Carbon Dioxide Anion Gap BUN Creatinine Est GFR ( Amer) Est GFR (Non-Af Amer) Random Glucose Calcium Phosphorus Magnesium Total Bilirubin AST ALT Alkaline Phosphatase Total Protein Albumin Globulin Albumin/Globulin Ratio Procalcitonin 0.10 L Influenza Typ A,B (EIA) Negative for flu a/b 05/12/18 08:00 WBC RBC Hgb Hct MCV MCH MCHC RDW Plt Count MPV Gran % Lymph % (Auto) [place] % (Auto) Eos % (Auto) Baso % (Auto) Gran # Lymph # (Auto) [place] # (Auto) Eos # (Auto) Baso # (Auto) Sodium 136 Potassium 4.0 Chloride 101 Carbon Dioxide 27 Anion Gap 11 BUN 17 Creatinine 1.1 Est GFR ( Amer) > 60 Est GFR (Non-Af Amer) > 60 Random Glucose 99 Calcium 8.8 Phosphorus 3.4 Magnesium 2.3 H Total Bilirubin 0.8 AST 33 ALT 38 Alkaline Phosphatase 46 Total Protein 7.1 Albumin 3.6 Globulin 3.4 Albumin/Globulin Ratio 1.1 Procalcitonin Influenza Typ A,B (EIA) Assessment & Plan - Assessment and Plan (Free Text) Plan: Infectious Diseases Attending Physician Attestation Patient seen and examined, discussed with medical assistant ob gyn. I have the pertinent clinical findings, history of present illness, medical histories, physical exam and pertinent labs and imaging. I agree with the above findings, assessment and plan. In addition, continue Vancomycin and Zosyn for right elbow skin and skin structure infection with abscess S/P I and D. Will follow up abscess cultures. Follow up HIV test.
[2018-05-12 08:33] LABS: BASO # 0.01 K/mm3 (0.0-2.0); BASO % 0.1 % (0.0-3.0); EOS # 0.2 (0.0-0.7); EOS % 1.7 % (1.5-5.0); GRAN # 7.7 (1.4-6.5); GRAN % 70.9 % (50.0-68.0); LYMPH % 18.5 % (22.0-35.0); MEAN CELL VOLUME 84.8 fl (80.0-105.0); MEAN CORPUSCULAR HEMOGLOBIN 28.8 pg (25.0-35.0); MEAN CORPUSCULAR HGB CONC 33.9 g/dl (31.0-37.0); MEAN PLATELET VOLUME 9.1 fl (7.0-11.0); MONO % 8.8 % (1.0-6.0); RBC 4.8 10^6/uL (3.5-6.1); WHITE BLOOD COUNT 10.8 10^3/ul (4.5-11.0)
[2018-05-12 08:36] LABS: HEMOGLOBIN 13.8 g/dL (14.0-18.0)
[2018-05-12 08:47] LABS: ALB/GLOB RATIO 1.1 (1.1-1.8); ALBUMIN 3.6 g/dL (3.0-4.8); ALT/SGPT 38 U/L (7-56); AST/SGOT 33 U/L (17-59); BLOOD UREA NITROGEN 17 mg/dL (7-21); CALCIUM 8.8 mg/dL (8.4-10.5); GFR NON-AFRICAN AMERICAN > 60
--- NOTE | 2018-05-12 09:08 | RAD ---
Date of service: 05/11/2018 PROCEDURE: Radiographs of the right elbow. HISTORY: rt. elbow abscess COMPARISON: No prior. FINDINGS: BONES: Bone alignment and mineralization are normal. There is no acute displaced fracture or bone destruction. JOINTS: Normal. SOFT TISSUES: There is periarticular subcutaneous edema. JOINT EFFUSION: None. OTHER FINDINGS: None. IMPRESSION: No acute fracture or bone destruction.
[2018-05-12] MEDS: Vancomycin 1gm in NS 250ml 1 GM/250 ML BAG IVPB SCH ×2 (09:45→21:10)
--- NOTE | 2018-05-12 11:51 | CARD ---
APPROVED REPORT Date of service: 05/11/2018 EKG Measurement Heart [id number] <Conclusion> Normal sinus rhythm Incomplete right bundle branch block Borderline ECG
[2018-05-12] MEDS ORDERED: Morphine 2 mg/ml ISec IVP STA (18:03)
--- NOTE | 2018-05-12 18:33 | CP.PCM.PN ---
<Freedom Donovan - Last Filed: 05/12/18 19:19> Subjective - Date & Time of Evaluation Date of Evaluation: 05/12/18 Time of Evaluation: 07:00 - Subjective Subjective: Freedom Donovan DO PGY1 Internal Medicine [employer] - Medicine Progress Note Patient was seen and examined this AM at bedside, No acute events reported overnight. Patient is complaining of some tingling of his R fingers; continues to voice pain w/ movement of his arm. Denies any chest pain, sob, cough, abd pain, n/v/d/c, urinary complaints remainder of 12 system ROS is negative at this time. Objective - Vital Signs/Intake and Output Vital Signs (last 24 hours): Temp Pulse Resp BP Pulse Ox 98.0 F 63 20 123/74 90 L 05/12/18 18:00 05/12/18 18:00 05/12/18 18:00 05/12/18 18:00 05/12/18 18:00 - Medications Medications: Current Medications Acetaminophen (Tylenol 325mg Tab) 650 mg PO Q6H PRN PRN Reason: Fever >100.4 F Last Admin: 05/11/18 21:05 Dose: 650 mg Acetaminophen (Tylenol 325mg Tab) 650 mg PO Q6H PRN PRN Reason: Pain, moderate (4-7) Acetaminophen (Tylenol 325mg Tab) 650 mg PO Q6H PRN PRN Reason: Pain, moderate (4-7) Last Admin: 05/12/18 18:16 Dose: 650 mg Docusate Sodium (Colace) 100 mg PO BID PAM Last Admin: 05/12/18 18:16 Dose: 100 mg Vancomycin HCl (Vancomycin 1gm) 1 gm in 250 mls @ 167 mls/hr IVPB Q12H PAM; Protocol Last Admin: 05/12/18 09:45 Dose: 167 mls/hr Sodium Chloride (Sodium Chloride 0.9%) 1,000 mls @ 100 mls/hr IV .Q10H PAM Piperacillin Sod/Tazobactam Sod (Zosyn 3.375 In Ns 100ml) 100 mls @ 25 mls/hr IVPB Q8 PAM; Protocol Last Admin: 05/12/18 14:34 Dose: 25 mls/hr Lorazepam (Ativan) 1 mg IVP Q6H PRN; Protocol PRN Reason: Agitation Morphine Sulfate (Morphine) 1 mg IVP Q8H PRN PRN Reason: Pain, severe (8-10) Last Admin: 05/12/18 16:12 Dose: 1 mg Nicotine (Nicoderm Cq) 1 patch TD DAILY PAM Last Admin: 05/12/18 09:44 Dose: 1 patch - Labs Labs: 05/12/18 08:00 05/12/18 08:00 - Constitutional Appears: Well, Non-toxic, No Acute Distress - Head Exam Head Exam: ATRAUMATIC, NORMOCEPHALIC - ENT Exam ENT Exam: Mucous Membranes Moist - Neck Exam Neck Exam: Full ROM, Normal Inspection - Respiratory Exam Respiratory Exam: Clear to Ausculation Bilateral, NORMAL BREATHING PATTERN. absent: Accessory Muscle Use - Cardiovascular Exam Cardiovascular Exam: RRR, +S1, +S2. absent: Murmur - GI/Abdominal Exam GI & Abdominal Exam: Soft, Normal Bowel Sounds. absent: Tenderness - Extremities Exam Extremities Exam: absent: Pedal Edema Additional comments: R hand appears to have mild/minimal swelling relative to left; dresssing near R elbow removed; revealed draining abscess site post I+D procedure. Area is erythematous w/ some tenderness. Upper extremity pulses are intact bilaterally; upper extremities are warm w/ no overt signs of decreased perfusion or neurovascular compromise. Lower extremity pulses 2+ DP/PT BL - Neurological Exam Neurological Exam: Alert, Awake, CN II-XII Intact, Oriented x3 - Psychiatric Exam Psychiatric exam: Normal Affect, Normal Mood - Skin Skin Exam: Dry, Intact, Normal Color, Warm Assessment and Plan - Assessment and Plan (Free Text) Assessment: 28M w/ PMH IVDA, Depression, Insomnia presents w/ R elbow pain + swelling x3days; found to have cellulitis of R forearm/antecubital area of IVD injection site; Bedside I&D of performed in ED. R antecubital cellulitis 2/2 IVDA Complaints of R arm swelling, pain, poor mobility Limited ROM due to pain of R elbow, some tingling of hand w/ some swelling 2/2 inflammation from cellulitis Afebrile w/ resolving leukocytosis R elbow XR: There is periarticular subcutaneous edema; No acute fracture or bone destruction. - Less concerning for osteomyelitis Blood cx 2/2 negative @ 24H, Procal negative, Lactate wnl No culture of wound performed as patient was empirically treated s/p bedside I&D C/w vanc + zosyn as per ID C/w Tylenol 650mg Q6h PRN Fever + Mild Pain U/S RUE negative for DVT ID onboard appreciate reccs Hx of IVDA HIV Pending Hepatitis Panel pending UTox not performed Abd discomfort - 2/2 opiate withdrawal? Colace Drug + EtOH counseling c/w Ativan 1mg Q6 PRN Agitation Hx of Tobacco abuse -Nicoderm 1 patch td daily -patient counseled thoroughly on risks of smoking -f/u CXR Diet: Regular DVT ppx: SCDs Patient was seen, examined, and discussed w/ attending physician Dr. Carlene Donovan DO PGY1 Internal Medicine [employer] - Pager [phone] <Carlene Donovan R - Last Filed: 05/17/18 21:39> Objective - Vital Signs/Intake and Output Vital Signs (last 24 hours): Temp Pulse Resp BP Pulse Ox 98 F 70 20 141/95 H 98 05/15/18 17:25 05/15/18 17:25 05/15/18 17:25 05/15/18 17:25 05/15/18 17:25 - Labs Labs: 05/15/18 07:15 05/15/18 07:15 Attending/Attestation - Attestation I have personally seen and examined this patient.: Yes I have fully participated in the care of the patient.: Yes I have reviewed all pertinent clinical information, including history, physical exam and plan: Yes Notes (Text): Patient seen and examined by me with resident at 11AM on 05/12/18 with resident. Case including HPI, physical exam, and assessment and plan discussed with resident. Agree with above with following additions/corrections. Patient is a 28 year old male with past medical history significant for IVDA, depression, multiple drug overdoses, and insomnia that presented to the emergency room with right elbow pain and swelling. Patient states that he feels ok. States he is having a lot of pain in his right elbow. States he is having difficulty bending his elbow. No chest pain or shortness of breath. No headaches or dizziness. No fever or chills. No nausea, vomiting, or abdominal pain. No dysuria. No diarrhea or constipation. Physical exam: Gen: Awake and alert lying in bed in no acute distress HEENT: Normocephalic, atraumatic. Extraocular muscles intact, pupils equal reactive. No scleral icterus. No pharyngeal erythema or exudate appreciated. Or opharynx is pink and moist. Neck is supple. Cardiovascular: Normal rhythm. Normal S1, S2. No murmurs, rubs, or gallops appreciated Pulmonary: Normal respiratory effort. No rhonchi, rales, or wheezing appreciated. Gastrointestinal: Soft, nontender. Nondistended. Positive bowel sounds all 4 quadrants, no guarding. Musculoskeletal: Moves all extremities. No calf tenderness. Right antecubital area with edema, erythema, copious amounts of drainage. Central nervous system: AAO x 3. CN2-12 grossly intact Dermatologic: Skin warm and dry. Assessment and plan: Patient is a 28 year old male with past medical history significant for IVDA, depression, multiple drug overdoses, and insomnia that pr esented to the emergency room with right elbow pain and swelling. 1. Right antecubital cellulitis and abscess secondary to IVDA. S/P I&D at bedside in emergency room, no culture was taken from wound at that time. Right elbow xray per radiologist showed no acute fracture or bonne destruction. RUE ve nous Doppler negative for DVT. ID following, recommendations appreciated. Continue Vanco and zosyn. Blood cultures with no growth so far. 2. Hypotension. One episode of hypotension. Placed on IV fluids 3. History of IVDA. Patient counseled on cessation. Pending HIV and hep panel results. Monitor for withdrawal symptoms. 4. Tobacco abuse. Counseled on cessation. Continue with nicotine patch. Case discussed in detail with the patient regarding current diagnosis and treatment plan. All questions answered.
[2018-05-12] MEDS: Sodium Chloride 0.9% 1,000 ML IV SCH (21:11)
[2018-05-13] MEDS: Morphine 2 mg/ml ISec IVP PRN ×3 (00:26→19:10)
[2018-05-13] MEDS: Piperacillin/Tazobact 3.375 gm 100 ML IVPB SCH ×3 (05:04→21:25)
[2018-05-13 06:31] LABS: BASO # 0.02 K/mm3 (0.0-2.0); BASO % 0.3 % (0.0-3.0); EOS # 0.2 (0.0-0.7); GRAN # 4.14 (1.4-6.5); GRAN % 56.8 % (50.0-68.0); HEMOGLOBIN 14.6 g/dL (14.0-18.0); LYMPH # 2.3 (1.2-3.4); LYMPH % 31.3 % (22.0-35.0); MEAN CELL VOLUME 84.7 fl (80.0-105.0); MEAN CORPUSCULAR HEMOGLOBIN 28.7 pg (25.0-35.0); MEAN CORPUSCULAR HGB CONC 33.9 g/dl (31.0-37.0); MEAN PLATELET VOLUME 9.5 fl (7.0-11.0); MONO # 0.6 (0.1-0.6); MONO % 8.6 % (1.0-6.0); RBC 5.09 10^6/uL (3.5-6.1); RED CELL DISTRIBUTION WIDTH 12.8 % (11.5-14.5); WHITE BLOOD COUNT 7.3 10^3/ul (4.5-11.0)
[2018-05-13 07:17] LABS: ALB/GLOB RATIO 1.1 (1.1-1.8); ALBUMIN 3.6 g/dL (3.0-4.8); ALT/SGPT 41 U/L (7-56); AST/SGOT 37 U/L (17-59); BLOOD UREA NITROGEN 12 mg/dL (7-21); CALCIUM 8.9 mg/dL (8.4-10.5); GFR NON-AFRICAN AMERICAN > 60
[2018-05-13] MEDS: Vancomycin 1gm in NS 250ml 1 GM/250 ML BAG IVPB SCH ×2 (08:59→21:25)
[2018-05-13] MEDS: Sodium Chloride 0.9% 1,000 ML IV SCH (09:01)
--- NOTE | 2018-05-13 11:00 | CP.PCM.PN ---
<Laura Felder - Last Filed: 05/13/18 14:46> Subjective - Date & Time of Evaluation Date of Evaluation: 05/13/18 Time of Evaluation: 09:20 - Subjective Subjective: PGY-3 ID resident progress note for Dr. Lara Patient with no acute events overnights. Denies fever or chills. States the elbow pain has improved. Objective - Vital Signs/Intake and Output Vital Signs (last 24 hours): Temp Pulse Resp BP Pulse Ox 97.5 F L 58 L 20 112/68 97 05/13/18 06:00 05/13/18 06:00 05/13/18 06:00 05/13/18 06:00 05/13/18 06:00 Intake and Output: 05/13/18 05/13/18 06:59 18:59 Intake Total 1330 Balance 1330 - Medications Medications: Current Medications Acetaminophen (Tylenol 325mg Tab) 650 mg PO Q6H PRN PRN Reason: Pain, Mild (1-3) Last Admin: 05/13/18 00:27 Dose: 650 mg Docusate Sodium (Colace) 100 mg PO BID PAM Last Admin: 05/13/18 08:59 Dose: 100 mg Vancomycin HCl (Vancomycin 1gm) 1 gm in 250 mls @ 167 mls/hr IVPB Q12H PAM; Protocol Last Admin: 05/13/18 08:59 Dose: 167 mls/hr Sodium Chloride (Sodium Chloride 0.9%) 1,000 mls @ 100 mls/hr IV .Q10H PAM Last Admin: 05/13/18 09:01 Dose: 100 mls/hr Piperacillin Sod/Tazobactam Sod (Zosyn 3.375 In Ns 100ml) 100 mls @ 25 mls/hr IVPB Q8 PAM; Protocol Last Admin: 05/13/18 05:04 Dose: 25 mls/hr Lorazepam (Ativan) 1 mg IVP Q6H PRN; Protocol PRN Reason: Agitation Morphine Sulfate (Morphine) 1 mg IVP Q8H PRN PRN Reason: Pain, severe (8-10) Last Admin: 05/13/18 09:00 Dose: 1 mg Nicotine (Nicoderm Cq) 1 patch TD DAILY PAM Last Admin: 05/13/18 08:59 Dose: 1 patch - Labs Labs: 05/13/18 06:00 05/13/18 06:00 - Constitutional Appears: No Acute Distress - Head Exam Head Exam: ATRAUMATIC, NORMAL INSPECTION, NORMOCEPHALIC - Eye Exam Eye Exam: Normal appearance - ENT Exam ENT Exam: Mucous Membranes Moist - Neck Exam Neck Exam: Normal Inspection - Respiratory Exam Respiratory Exam: Clear to Ausculation Bilateral, NORMAL BREATHING PATTERN. absent: Rales, Rhonchi, Wheezes, Respiratory Distress, Stridor - Cardiovascular Exam Cardiovascular Exam: REGULAR RHYTHM, +S1, +S2. absent: Murmur - GI/Abdominal Exam GI & Abdominal Exam: Soft, Normal Bowel Sounds. absent: Distended, Firm, Guarding, Rigid, Tenderness - Extremities Exam Extremities Exam: Tenderness. absent: Pedal Edema - Neurological Exam Neurological Exam: Alert, Awake, Oriented x3 - Psychiatric Exam Psychiatric exam: Normal Affect, Normal Mood - Skin Additional comments: Right elbow with clean dressing. patient refused full examined of the wound. Assessment and Plan - Assessment and Plan (Free Text) Assessment: Patient is a 28 y/o with h/o IVDA, and depression presenting with: Right antecubital cellulites and abscess s/p I&D Gram positive cocci in chains bacteremia x1 IVDA Plan: leukocytosis resolved. Afebrile. Blood culture x1 with gram positive cocci in chains. Will orders another blood cultures. will need echo to rule out endocarditis. HIV 4th gen negative. Elbow x-ray with no acute findings. Right upper extremity u/s with no DVT. Continue with vanco and zosyn. Order MRI to rule out osteo. Consider surgical evaluation for wound care. Patient seen, examined and case discussed with Dr. Lara. <Ernesto Lara - Last Filed: 05/13/18 19:21> Objective - Vital Signs/Intake and Output Vital Signs (last 24 hours): Temp Pulse Resp BP Pulse Ox 98.5 F 72 20 125/84 97 05/13/18 16:35 05/13/18 16:35 05/13/18 16:35 05/13/18 16:35 05/13/18 16:35 - Medications Medications: Current Medications Acetaminophen (Tylenol 325mg Tab) 650 mg PO Q6H PRN PRN Reason: Pain, Mild (1-3) Last Admin: 10/10/18 00:27 Dose: 650 mg Docusate Sodium (Colace) 100 mg PO BID [facility] Last Admin: 05/13/18 08:59 Dose: 100 mg Escitalopram Oxalate (Lexapro) 10 mg PO DAILY [facility] Last Admin: 05/13/18 15:10 Dose: 10 mg Vancomycin HCl (Vancomycin 1gm) 1 gm in 250 mls @ 167 mls/hr IVPB Q12H [facility]; Protocol Last Admin: 05/13/18 08:59 Dose: 167 mls/hr Sodium Chloride (Sodium Chloride 0.9%) 1,000 mls @ 100 mls/hr IV .Q10H [facility] Last Admin: 05/13/18 09:01 Dose: 100 mls/hr Piperacillin Sod/Tazobactam Sod (Zosyn 3.375 In Ns 100ml) 100 mls @ 25 mls/hr IVPB Q8 PAM; Protocol Last Admin: 05/13/18 15:12 Dose: 25 mls/hr Ketorolac Tromethamine (Toradol) 15 mg IVP Q6H [facility] Last Admin: 05/13/18 15:10 Dose: 15 mg Lorazepam (Ativan) 1 mg IVP Q6H PRN; Protocol PRN Reason: Agitation Mirtazapine (Remeron) 15 mg PO HS [facility] Morphine Sulfate (Morphine) 1 mg IVP Q8H PRN PRN Reason: Pain, severe (8-10) Last Admin: 05/13/18 19:10 Dose: 1 mg Nicotine (Nicoderm Cq) 1 patch TD DAILY [facility] Last Admin: 05/13/18 08:59 Dose: 1 patch Trazodone HCl (Desyrel) 100 mg PO [facility] - Labs Labs: 05/13/18 06:00 05/13/18 06:00 Assessment and Plan - Assessment and Plan (Free Text) Plan: Infectious Diseases Attending Physician Attestation Patient seen and examined, discussed with medical billing assistant. I have the pertinent clinical findings, history of present illness, medical histories, physical exam and pertinent labs and imaging. I agree with the above findings, assessment and plan. In addition, continue Vancomycin and Zosyn for sepsis due to gram positive cocci bacteremia probably from right elbow skin and skin structure infection with abscess S/P I and D. Will follow up abscess cultures and identification of the gram positive cocci in the blood. Will repeat blood cx and check 2D echo. Will get MRI of the left arm. Follow up HIV test.
[2018-05-13 12:25] LABS: HEPATITIS B SURFACE AG Negative (NEGATIVE)
[2018-05-13 12:31] LABS: HEPATITIS B CORE AB NEGATIVE (NEGATIVE)
[2018-05-13 13:35] LABS: HEPATITIS A IGM NEGATIVE (NEGATIVE)
[2018-05-13 13:57] LABS: HEPATITIS C ANTIBODY REACTIVE (NEGATIVE)
--- NOTE | 2018-05-13 17:28 | CP.PCM.PN ---
<Freedom Donovan - Last Filed: 05/13/18 19:46> Subjective - Date & Time of Evaluation Date of Evaluation: 05/13/18 Time of Evaluation: 07:00 - Subjective Subjective: Freedom Donovan DO PGY1 - Internal Medicine [employer] - Hospital Progress Note Patient seen and examined at bedside this morning. Patient has no complaints of sob, cough, cp, dizziness, palpitations, abd pain, n/v/d/c, Objective - Vital Signs/Intake and Output Vital Signs (last 24 hours): Temp Pulse Resp BP Pulse Ox 98.5 F 72 20 125/84 97 05/13/18 16:35 05/13/18 16:35 05/13/18 16:35 05/13/18 16:35 05/13/18 16:35 Intake and Output: 05/13/18 05/13/18 06:59 18:59 Intake Total 1330 Balance 1330 - Medications Medications: Current Medications Acetaminophen (Tylenol 325mg Tab) 650 mg PO Q6H PRN PRN Reason: Pain, Mild (1-3) Last Admin: 05/13/18 00:27 Dose: 650 mg Docusate Sodium (Colace) 100 mg PO BID PAM Last Admin: 05/13/18 08:59 Dose: 100 mg Escitalopram Oxalate (Lexapro) 10 mg PO DAILY PAM Last Admin: 05/13/18 15:10 Dose: 10 mg Vancomycin HCl (Vancomycin 1gm) 1 gm in 250 mls @ 167 mls/hr IVPB Q12H [facility]; Protocol Last Admin: 05/13/18 08:59 Dose: 167 mls/hr Sodium Chloride (Sodium Chloride 0.9%) 1,000 mls @ 100 mls/hr IV .Q10H PAM Last Admin: 05/13/18 09:01 Dose: 100 mls/hr Piperacillin Sod/Tazobactam Sod (Zosyn 3.375 In Ns 100ml) 100 mls @ 25 mls/hr IVPB Q8 PAM; Protocol Last Admin: 05/13/18 15:12 Dose: 25 mls/hr Ketorolac Tromethamine (Toradol) 15 mg IVP Q6H PAM Last Admin: 05/13/18 15:10 Dose: 15 mg Lorazepam (Ativan) 1 mg IVP Q6H PRN; Protocol PRN Reason: Agitation Mirtazapine (Remeron) 15 mg PO HS [facility] Morphine Sulfate (Morphine) 1 mg IVP Q8H PRN PRN Reason: Pain, severe (8-10) Last Admin: 05/13/18 09:00 Dose: 1 mg Nicotine (Nicoderm Cq) 1 patch TD DAILY [facility] Last Admin: 05/13/18 08:59 Dose: 1 patch Trazodone HCl (Desyrel) 100 mg PO HS [facility] - Labs Labs: 05/13/18 06:00 05/13/18 06:00 - Constitutional Appears: Well, Non-toxic, No Acute Distress - Head Exam Head Exam: ATRAUMATIC, NORMOCEPHALIC - ENT Exam ENT Exam: Mucous Membranes Moist - Neck Exam Neck Exam: Full ROM, Normal Inspection - Respiratory Exam Respiratory Exam: Clear to Ausculation Bilateral, NORMAL BREATHING PATTERN. absent: Accessory Muscle Use - Cardiovascular Exam Cardiovascular Exam: RRR, +S1, +S2. absent: Murmur - GI/Abdominal Exam GI & Abdominal Exam: Soft, Normal Bowel Sounds. absent: Tenderness - Extremities Exam Extremities Exam: absent: Pedal Edema Additional comments: R hand appears to have mild/minimal swelling relative to left; dresssing near R elbow removed; revealed draining abscess site post I+D procedure. Drainiage is improved today compared to day prior Upper extremity pulses are intact bilaterally; upper extremities are warm w/ no overt signs of decreased perfusion or neurovascular compromise. Lower extremity pulses 2+ DP/PT BL - Neurological Exam Neurological Exam: Alert, Awake, CN II-XII Intact, Oriented x3 - Psychiatric Exam Psychiatric exam: Normal Affect, Normal Mood - Skin Skin Exam: Dry, Intact, Normal Color, Warm Assessment and Plan - Assessment and Plan (Free Text) Assessment: 28M w/ PMH IVDA, Depression, Insomnia presents w/ R elbow pain + swelling x3days; found to have cellulitis of R forearm/antecubital area of IVD injection site; Bedside I&D of performed in ED. MRI of RUE pending to r/o osteomyelitis given depth of abscess. R antecubital cellulitis 2/2 IVDA Complaints of R arm swelling, pain, poor mobility Limited ROM due to pain of R elbow, some tingling of hand w/ some swelling 2/2 inflammation from cellulitis Afebrile w/o leukocytosis R elbow XR: There is periarticular subcutaneous edema; No acute fracture or bone destruction. - Less concerning for osteomyelitis Blood cx 1/2 growing Gram+ Cocci in chains (most likely contaminant) Repeat Cx pending Procal negative, Lactate wnl No culture of wound performed as patient was empirically treated s/p bedside I&D; iodoform packing removed and replaced this AM C/w vanc + zosyn as per ID C/w Tylenol 650mg Q6h PRN Fever + Mild Pain C/w Morphine 1mg Q8h PRN severe pain Started toradol 15 IVP Q6H moderate pain Echocardiogram performed MRI w/ contrast of RUE pending U/S RUE negative for DVT ID onboard appreciate reccs Hx of IVDA HIV negative Hepatitis Panel::: HCV Ab+ UTox not performed Abd discomfort - 2/2 opiate withdrawal? Colace Drug + EtOH counseling c/w Ativan 1mg Q6 PRN Agitation Hx of Tobacco abuse -Nicoderm 1 patch td daily -patient counseled thoroughly on risks of smoking -f/u CXR Hx of Insomnia and Depression Resume home lexapro 10 qd, trazadone 100hs, remeron 15hs Diet: Regular DVT ppx: SCDs Patient was seen, examined, and discussed w/ attending physician Dr. Carlene Donovan DO PGY1 Internal Medicine [employer] - Pager [phone] <Carlene Donovan R - Last Filed: 05/17/18 21:49> Objective - Vital Signs/Intake and Output Vital Signs (last 24 hours): Temp Pulse Resp BP Pulse Ox 98 F 70 20 141/95 H 98 05/15/18 17:25 05/15/18 17:25 05/15/18 17:25 05/15/18 17:25 05/15/18 17:25 - Labs Labs: 05/15/18 07:15 05/15/18 07:15 Attending/Attestation - Attestation I have personally seen and examined this patient.: Yes I have fully participated in the care of the patient.: Yes I have reviewed all pertinent clinical information, including history, physical exam and plan: Yes Notes (Text): Patient seen and examined by me with resident at 10:50AM on 05/13/18 with resident. Case including HPI, physical exam, and assessment and plan discussed with resident. Agree with above with following additions/corrections. Patient is a 28 year old male with past medical history significant for IVDA, depression, multiple drug overdoses, and insomnia that presented to the emergency room with right elbow pain and swelling. Patient states that he feels a little better. Still with right elbow pain but improved. States he is able to bend his elbow a little more today. No chest pain or shortness of breath. No headaches or dizziness. No fever or chills. No nausea, vomiting, or abdominal pain. No dysuria. No diarrhea or constipation. Physical exam: Gen: Awake and alert lying in bed in no acute distress HEENT: Normocephalic, atraumatic. Extraocular muscles intact, pupils equal reactive. No scleral icterus. No pharyngeal erythema or exudate appreciated. Oropharynx is pink and moist. Neck is supple. Cardiovascular: Normal rhythm. Normal S1, S2. No murmurs, rubs, or gallops appreciated Pulmonary: Normal respiratory effort. No rhonchi, rales, or wheezing appreciated. Gastrointestinal: Soft, nontender. Nondistended. Positive bowel sounds all 4 quadrants, no guarding. Musculoskeletal: Moves all extremities. No calf tenderness. Right antecubital area with edema, erythema, some drainage noted, packing in place. Central nervous system: AAO x 3. CN2-12 grossly intact Dermatologic: Skin warm and dry. Assessment and plan: Patient is a 28 year old male with past medical history significant for IVDA, depression, multiple drug overdoses, and insomnia that presented to the emergency room with right elbow pain and swelling. 1. Right antecubital cellulitis and abscess secondary to IVDA. S/P I&D at bedside in emergency room. ID following, recommendations appreciated. Continue Vanco and zosyn. Blood cultures positive for streptococcus mutans. Follow up repeat blood cultures. Continue with daily packing changes. MRI of right upper extremity pending. Right elbow xray per radiologist showed no acute fracture or bonne destruction. RUE venous Doppler negative for DVT. 2. Bacteremia. One blood culture positive for streptococcus mutans. ID Following, recommendations appreciated. Follow up repeat blood cultures. Continue vanco and zosyn. 2D echo ordered 3. Hypotension. Resolved. Continue to monitor 4. History of IVDA. Patient counseled on cessation. HIV negative. Hep panel pending. Monitor for withdrawal symptoms. 5. Depression. Continue home Lexapro and remeron 6. Insomnia. Continue home trazodone 7. Tobacco abuse. Counseled on cessation. Continue with nicotine patch. Case discussed in detail with the patient regarding current diagnosis and treatment plan. All questions answered.
[2018-05-14] MEDS: Piperacillin/Tazobact 3.375 gm 100 ML IVPB SCH ×2 (05:27→15:07)
--- NOTE | 2018-05-14 05:41 | CP.PCM.PN ---
<Freedom Donovan - Last Filed: 05/14/18 18:39> Subjective - Date & Time of Evaluation Date of Evaluation: 05/14/18 Time of Evaluation: 05:41 - Subjective Subjective: rFeedom Donovan DO PGY1 - Internal Medicine [employer] - Hospital Progress Note Overnight patient was agitated; nursing reported patient was kicking in bed not sleeping. Patient was given 2mg ativan in total. morning nanny exam patient was somnolent not participating in exam or interview. Later in afternoon patient was awake conversing in bed; his mother was at be dside. Echo findings were explained to patient; management plan moving forward to r/o osteo and bacteremia were discussed w/ patient. No complaints were endorsed by patient at time of afternoon exam. Objective - Vital Signs/Intake and Output Vital Signs (last 24 hours): Temp Pulse Resp BP Pulse Ox 98.5 F 72 20 125/84 97 05/13/18 16:35 05/13/18 16:35 05/13/18 16:35 05/13/18 16:35 05/13/18 16:35 Intake and Output: 05/13/18 05/14/18 18:59 06:59 Intake Total 1360 Balance 1360 - Medications Medications: Current Medications Acetaminophen (Tylenol 325mg Tab) 650 mg PO Q6H PRN PRN Reason: Pain, Mild (1-3) Last Admin: 05/13/18 00:27 Dose: 650 mg Docusate Sodium (Colace) 100 mg PO BID PAM Last Admin: 05/13/18 08:59 Dose: 100 mg Escitalopram Oxalate (Lexapro) 10 mg PO DAILY [facility] Last Admin: 05/13/18 15:10 Dose: 10 mg Vancomycin HCl (Vancomycin 1gm) 1 gm in 250 mls @ 167 mls/hr IVPB Q12H PAM; Protocol Last Admin: 05/13/18 21:25 Dose: 167 mls/hr Sodium Chloride (Sodium Chloride 0.9%) 1,000 mls @ 100 mls/hr IV .Q10H PAM Last Admin: 05/13/18 09:01 Dose: 100 mls/hr Piperacillin Sod/Tazobactam Sod (Zosyn 3.375 In Ns 100ml) 100 mls @ 25 mls/hr IVPB Q8 PAM; Protocol Last Admin: 05/14/18 05:27 Dose: 25 mls/hr Ketorolac Tromethamine (Toradol) 15 mg IVP Q6H [facility] Last Admin: 05/14/18 03:11 Dose: 15 mg Lorazepam (Ativan) 1 mg IVP Q6H PRN; Protocol PRN Reason: Agitation Last Admin: 05/14/18 01:25 Dose: 1 mg Mirtazapine (Remeron) 15 mg PO HS [facility] Last Admin: 05/13/18 21:24 Dose: 15 mg Morphine Sulfate (Morphine) 1 mg IVP Q8H PRN PRN Reason: Pain, severe (8-10) Last Admin: 05/13/18 19:10 Dose: 1 mg Nicotine (Nicoderm Cq) 1 patch TD DAILY [facility] Last Admin: 05/13/18 08:59 Dose: 1 patch Trazodone HCl (Desyrel) 100 mg PO HS [facility] Last Admin: 05/13/18 21:24 Dose: 100 mg - Labs Labs: 05/13/18 06:00 05/13/18 06:00 - Constitutional Appears: Well, Non-toxic, No Acute Distress - Head Exam Head Exam: ATRAUMATIC, NORMOCEPHALIC - ENT Exam ENT Exam: Mucous Membranes Moist - Neck Exam Neck Exam: Full ROM, Normal Inspection - Respiratory Exam Respiratory Exam: Clear to Ausculation Bilateral, NORMAL BREATHING PATTERN. absent: Accessory Muscle Use - Cardiovascular Exam Cardiovascular Exam: RRR, +S1, +S2. absent: Murmur - GI/Abdominal Exam GI & Abdominal Exam: Soft, Normal Bowel Sounds. absent: Tenderness - Extremities Exam Extremities Exam: absent: Pedal Edema Additional comments: R hand still swollen; dressing not removed today; dressing is CDI we will repack dressing tomorrow. Upper extremity pulses are intact bilaterally; upper extremities are warm w/ no overt signs of decreased perfusion or neurovascular compromise. Unchanged from prior presentation. Lower extremity pulses 2+ DP/PT BL Assessment and Plan - Assessment and Plan (Free Text) Assessment: 28M w/ PMH IVDA, Depression, Insomnia presents w/ R elbow pain + swelling x3days; found to have cellulitis of R forearm/antecubital area of IVD injection site; Bedside I&D of performed in ED. MRI of RUE pending to r/o osteomyelitis given depth of abscess. Patient may have suspected bacteremia. PLAN R antecubital cellulitis 2/2 IVDA Still having R arm pain, swelling, decreased flexion. Afebrile w/o leukocytosis R elbow XR: There is periarticular subcutaneous edema; No acute fracture or bone destruction. - Less concerning for osteomyelitis Procal negative, Lactate wnl No culture of wound performed as patient was empirically treated s/p bedside I&D in ED; We will change iodoform packing tomorrow C/w vanc + zosyn as per ID C/w Tylenol 650mg Q6h PRN Fever + Mild Pain DC Morphine 1mg Q8h PRN severe pain Start Ultram 50 TID PRN severe pain C/w Toradol 15 IVP Q6H moderate pain Echocardiogram performed - EF 65%; no vegetation MRI w/ contrast of RUE pending U/S RUE negative for DVT Wound Care consulted ID onboard appreciate reccs Hx of IVDA HIV negative Hepatitis Panel - HCV Ab+ Blood Cx 1/2 growing Gram+ Cocci in chains (most likely contaminant) Repeat Cx negative to date UTox not performed Abd discomfort - 2/2 opiate withdrawal? Colace Drug + EtOH counseling c/w Ativan 1mg Q6 PRN Agitation Hx of Tobacco abuse -Nicoderm 1 patch td daily -patient counseled thoroughly on risks of smoking Hx of Insomnia and Depression Resume home lexapro 10 qd, trazadone 100hs, remeron 15hs Psych following, appreciate reccs Diet: Regular DVT ppx: SCDs Patient was seen, examined, and discussed w/ attending physician Dr. Carlene Donovan DO PGY1 Internal Medicine [employer] - Pager [phone] <Carlene Donovan R - Last Filed: 05/17/18 22:00> Objective - Vital Signs/Intake and Output Vital Signs (last 24 hours): Temp Pulse Resp BP Pulse Ox 98 F 70 20 141/95 H 98 05/15/18 17:25 05/15/18 17:25 05/15/18 17:25 05/15/18 17:25 05/15/18 17:25 - Labs Labs: 05/15/18 07:15 05/15/18 07:15 Attending/Attestation - Attestation I have personally seen and examined this patient.: Yes I have fully participated in the care of the patient.: Yes I have reviewed all pertinent clinical information, including history, physical exam and plan: Yes Notes (Text): Patient seen and examined by me with resident at 12:15PM on 05/14/18 with dave johansen. Case including HPI, physical exam, and assessment and plan discussed with resident. Agree with above with following additions/corrections. Patient is a 28 year old male with past medical history significant for IVDA, depression, multiple drug overdoses, and insomnia [facility] right elbow pain and swelling. Patient states that he feels better. Right elbow pain and range of motion improved. Patient is able to bend his elbow. Drainage from site improved. No c hest pain or shortness of breath. No headaches or dizziness. No fever or chills. No nausea, vomiting, or abdominal pain. No dysuria. No diarrhea or constipation. Physical exam: Gen: Awake and alert lying in bed in no acute distress HEENT: Normocephalic, atraumatic. Extraocular muscles intact, pupils equal reactive. No scleral icterus. No pharyngeal erythema or exudate appreciated. Oropharynx is pink and moist. Neck is supple. Cardiovascular: Normal rhythm. Normal S1, S2. No murmurs, rubs, or gallops appreciated Pulmonary: Normal respiratory effort. No rhonchi, rales, or wheezing appreciated. Gastrointestinal: Soft, nontender. Nondistended. Positive bowel sounds all 4 quadrants, no guarding. Musculoskeletal: Moves all extremities. No calf tenderness. Right antecubital area with improved edema and erythema, packing in place. Central nervous system: AAO x 3. CN2-12 grossly intact Dermatologic: Skin warm and dry. Assessment and plan: Patient is a 28 year old male with past medical history significant for IVDA, depression, multiple drug overdoses, and insomnia that presented to the emergency room with right elbow pain and swelling. 1. Right antecubital cellulitis and abscess secondary to IVDA. Improving. S/P I&D at bedside in emergency room. ID following, recommendations appreciated. Continue Vanco and zosyn. Blood cultures positive for streptococcus mutans. Repeat blood cultures pending. Continue with daily packing changes. MRI of right upper extremity pending. Right elbow xray per radiologist showed no acute fracture or bonne destruction. RUE venous Doppler negative for DVT. 2. Bacteremia. One blood culture positive for streptococcus mutans. ID following, recommendations appreciated. Repeat blood cultures pending. Continue vanco and zosyn. 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 3. Hypotension. Resolved. Continue to monitor 4. History of IVDA. Patient counseled on cessation. HIV negative. Hep panel positive for Hep C. Per patient, he has been treated for hep C in the past. Continue to monitor for withdrawal symptoms. 5. Depression. Continue home Lexapro and remeron 6. Insomnia. Continue home trazodone 7. Tobacco abuse. Counseled on cessation. Continue with nicotine patch. Case discussed in detail with the patient regarding current diagnosis and treatment plan. All questions answered.
[2018-05-14 06:25] LABS: BASO # 0.02 K/mm3 (0.0-2.0); BASO % 0.2 % (0.0-3.0); EOS # 0.2 (0.0-0.7); GRAN # 6.95 (1.4-6.5); GRAN % 64.8 % (50.0-68.0); LYMPH # 2.7 (1.2-3.4); MEAN CORPUSCULAR HEMOGLOBIN 28.1 pg (25.0-35.0); MEAN CORPUSCULAR HGB CONC 33.8 g/dl (31.0-37.0); MEAN PLATELET VOLUME 9.3 fl (7.0-11.0); MONO # 0.9 (0.1-0.6); RBC 4.99 10^6/uL (3.5-6.1); RED CELL DISTRIBUTION WIDTH 12.6 % (11.5-14.5); WHITE BLOOD COUNT 10.7 10^3/ul (4.5-11.0)
[2018-05-14 07:07] LABS: ALBUMIN 3.5 g/dL (3.0-4.8); ALT/SGPT 36 U/L (7-56); AST/SGOT 35 U/L (17-59); BLOOD UREA NITROGEN 11 mg/dL (7-21); CALCIUM 8.6 mg/dL (8.4-10.5); GFR NON-AFRICAN AMERICAN > 60
[2018-05-14] MEDS: Vancomycin 1gm in NS 250ml 1 GM/250 ML BAG IVPB SCH ×2 (09:52→22:05)
--- NOTE | 2018-05-14 10:47 | CARD ---
APPROVED REPORT Date of service: 05/13/2018 EXAM: Two-dimensional and M-mode echocardiogram with Doppler and color Doppler. INDICATION Infection:Rule out subacute bacterial endocarditis 2D DIMENSIONS Left Atrium (2D)3.9 (1.6-4.0cm)IVSd1.1 (0.7-1.1cm) LVDd5.5 (3.9-5.9cm)PWd1.1 (0.7-1.1cm) LVDs3.5 (2.5-4.0cm)FS (%) 35.8 % LVEF (%)64.7 (>50%) M-Mode DIMENSIONS Aortic Root3.30 (2.2-3.7cm)Aortic Cusp Exc.2.20 (1.5-2.0cm) Aortic Valve AoV Peak Juhctuvg255.0cm/Isabella Peak GR.9mmHg Mitral Valve MV E Bfcmxhea44.0cm/sMV A Ydjrutfp92.3cm/sE/A ratio1.7 TDI E/Lateral E'0.0E/Medial E'0.0 Tricuspid Valve TR Peak Cegabvut488fq/sRAP [id number] Peak Gr.19mmHg [id number] LEFT VENTRICLE The left ventricle is normal size. The left ventricular function is normal. The left ventricular ejection fraction is within the normal range.Ej.Fr:65%. RIGHT VENTRICLE The right ventricle is normal size. The right ventricular systolic function is normal. ATRIA The left atrium size is normal. The right atrium size is normal. AORTIC VALVE The aortic valve is normal in structure. MITRAL VALVE The mitral valve is normal in structure. Mitral regurgitation is trace. TRICUSPID VALVE The tricuspid valve is normal in structure. There is trace to mild tricuspid regurgitation. RVSP; 29mm Hg. <Conclusion> The left ventricle is normal size. The left ventricular function is normal. The left ventricular ejection fraction is within the normal range.Ej.Fr:65%. The right ventricle is normal size. The right ventricular systolic function is normal. The left atrium size is normal. The right atrium size is normal. The aortic valve is normal in structure. The mitral valve is normal in structure. Mitral regurgitation is trace. The tricuspid valve is normal in structure. There is trace to mild tricuspid regurgitation. RVSP; 29mm Hg. No Vegetations Seen.
--- NOTE | 2018-05-14 11:38 | CP.PCM.PN ---
<Laura Felder - Last Filed: 05/14/18 13:37> Subjective - Date & Time of Evaluation Date of Evaluation: 05/14/18 Time of Evaluation: 08:05 - Subjective Subjective: PGY-3 Resident ID progress note for Dr. Lara: Patient afebrile, no acute events overnight. Denies abdominal pain, nausea, vomiting or diarrhea. Objective - Vital Signs/Intake and Output Vital Signs (last 24 hours): Temp Pulse Resp BP Pulse Ox 98.1 F 63 20 123/79 96 05/14/18 08:12 05/14/18 08:12 05/14/18 08:12 05/14/18 08:12 05/14/18 08:12 Intake and Output: 05/14/18 05/14/18 06:59 18:59 Intake Total 2510 Balance 2510 - Medications Medications: Current Medications Acetaminophen (Tylenol 325mg Tab) 650 mg PO Q6H PRN PRN Reason: Pain, Mild (1-3) Last Admin: 05/13/18 00:27 Dose: 650 mg Docusate Sodium (Colace) 100 mg PO BID [facility] Last Admin: 05/14/18 10:02 Dose: 100 mg Escitalopram Oxalate (Lexapro) 10 mg PO DAILY [facility] Last Admin: 05/14/18 09:46 Dose: 10 mg Vancomycin HCl (Vancomycin 1gm) 1 gm in 250 mls @ 167 mls/hr IVPB Q12H [facility]; Protocol Last Admin: 05/14/18 09:52 Dose: 167 mls/hr Sodium Chloride (Sodium Chloride 0.9%) 1,000 mls @ 100 mls/hr IV .Q10H [facility] Last Admin: 05/13/18 09:01 Dose: 100 mls/hr Piperacillin Sod/Tazobactam Sod (Zosyn 3.375 In Ns 100ml) 100 mls @ 25 mls/hr IVPB Q8 [facility]; Protocol Last Admin: 05/14/18 05:27 Dose: 25 mls/hr Ketorolac Tromethamine (Toradol) 15 mg IVP Q6H [facility] Last Admin: 05/14/18 09:52 Dose: 15 mg Lorazepam (Ativan) 1 mg IVP Q6H PRN; Protocol PRN Reason: Agitation Last Admin: 05/14/18 01:25 Dose: 1 mg Mirtazapine (Remeron) 15 mg PO HS [facility] Last Admin: 05/13/18 21:24 Dose: 15 mg Morphine Sulfate (Morphine) 1 mg IVP Q8H PRN PRN Reason: Pain, severe (8-10) Last Admin: 05/13/18 19:10 Dose: 1 mg Nicotine (Nicoderm Cq) 1 patch TD DAILY [facility] Last Admin: 05/14/18 09:48 Dose: 1 patch Trazodone HCl (Desyrel) 100 mg PO HS [facility] Last Admin: 05/13/18 21:24 Dose: 100 mg - Labs Labs: 05/14/18 05:45 05/14/18 05:45 - Constitutional Appears: No Acute Distress - Head Exam Head Exam: ATRAUMATIC, NORMAL INSPECTION, NORMOCEPHALIC - Eye Exam Eye Exam: Normal appearance - ENT Exam ENT Exam: Mucous Membranes Moist - Neck Exam Neck Exam: Normal Inspection - Respiratory Exam Respiratory Exam: Clear to Ausculation Bilateral, NORMAL BREATHING PATTERN. absent: Rales, Rhonchi, Wheezes, Respiratory Distress, Stridor - Cardiovascular Exam Cardiovascular Exam: REGULAR RHYTHM, +S1, +S2. absent: Murmur - GI/Abdominal Exam GI & Abdominal Exam: Soft, Normal Bowel Sounds. absent: Distended, Firm, Gua rding, Rigid, Tenderness - Extremities Exam Additional comments: Right anterior antecubital with ~1cm of wound, deep, draining sero-sanguinous fluid. - Neurological Exam Neurological Exam: Alert, Awake, Oriented x3 Assessment and Plan - Assessment and Plan (Free Text) Assessment: Patient is a 28 y/o with h/o IVDA, and depression presenting with: Right antecubital cellulites and abscess s/p I&D, r/o osteo Gram positive cocci in chains bacteremia x1 IVDA Plan: Reamis afebrile. leukocytosis resolved. Blood culture x1 with gram positive cocci in chains. Repeat culture with so far no growth. TTE with no vegetation. HIV 4th gen negative. Continue with vanco and zosyn. Pending MRI Obtain wound cultures Consider surgical evaluation for wound care. Patient seen, examined and case discussed with Dr. Lara. <Ernesto Lara - Last Filed: 05/14/18 20:46> Objective - Vital Signs/Intake and Output Vital Signs (last 24 hours): Temp Pulse Resp BP Pulse Ox 97.9 F 75 20 127/92 H 99 05/14/18 16:14 05/14/18 16:14 05/14/18 16:14 05/14/18 16:14 05/14/18 16:14 - Medications Medications: Current Medications Acetaminophen (Tylenol 325mg Tab) 650 mg PO Q6H PRN PRN Reason: Pain, Mild (1-3) Last Admin: 05/13/18 00:27 Dose: 650 mg Docusate Sodium (Colace) 100 mg PO BID [facility] Last Admin: 05/14/18 18:23 Dose: 100 mg Escitalopram Oxalate (Lexapro) 10 mg PO DAILY [facility] Last Admin: 05/14/18 09:46 Dose: 10 mg Vancomycin HCl (Vancomycin 1gm) 1 gm in 250 mls @ 167 mls/hr IVPB Q12H [facility]; Protocol Last Admin: 05/14/18 09:52 Dose: 167 mls/hr Sodium Chloride (Sodium Chloride 0.9%) 1,000 mls @ 100 mls/hr IV .Q10H [facility] Last Admin: 05/13/18 09:01 Dose: 100 mls/hr Piperacillin Sod/Tazobactam Sod (Zosyn 3.375 In Ns 100ml) 100 mls @ 25 mls/hr IVPB Q8 [facility]; Protocol Last Admin: 05/14/18 15:07 Dose: 25 mls/hr Lorazepam (Ativan) 1 mg IVP Q6H PRN; Protocol PRN Reason: Agitation Last Admin: 05/14/18 15:06 Dose: 1 mg Mirtazapine (Remeron) 15 mg PO HS [facility] Last Admin: 05/13/18 21:24 Dose: 15 mg Morphine Sulfate (Morphine) 1 mg IVP Q8H PRN PRN Reason: Pain, severe (8-10) Last Admin: 05/14/18 12:37 Dose: 1 mg Nicotine (Nicoderm Cq) 1 patch TD DAILY [facility] Last Admin: 05/14/18 09:48 Dose: 1 patch Tramadol HCl (Ultram) 50 mg PO TID PRN PRN Reason: severe pain >8/10 Last Admin: 05/14/18 18:24 Dose: 50 mg Trazodone HCl (Desyrel) 100 mg PO HS [facility] Last Admin: 05/13/18 21:24 Dose: 100 mg - Labs Labs: 05/14/18 05:45 05/14/18 05:45 Assessment and Plan - Assessment and Plan (Free Text) Plan: Infectious Diseases Attending Physician Attestation Patient seen and examined, discussed with claim review medical director. I have the pertinent clinical findings, history of present illness, medical histories, physical exam and pertinent labs and imaging. I agree with the above findings, assessment and plan. In addition, continue Vancomycin and Zosyn for sepsis due to gram positive cocci bacteremia probably from right elbow skin and skin structure infection with abscess S/P I and D. Will follow up abscess cultures and identification of the gram positive cocci in the blood. Will repeat blood cx and check 2D echo. Follow up MRI of the left arm. Follow up HIV test. Recommend surgical evaluation.
[2018-05-14] MEDS: Morphine 2 mg/ml ISec IVP PRN ×2 (12:37→22:19)
--- NOTE | 2018-05-15 03:43 | CON ---
DATE: 05/14/2018 HISTORY OF PRESENT ILLNESS: In short, the patient is 28-year-old male, reported history of IV here in abuse. The patient also has history of depression and attends [facility]. The patient was admitted on the medical side for evaluation of right arm pain and swelling rule out abscess. Psych consult was called because the patient has history of depression and anxiety. The patient was seen and examined. The patient obviously presented to be restless and uncomfortable as per the patient. There is mother next to the patient. The patient wanted to be interviewed in front of the mother. As per history, the patient has long history of opioid use. The patient was going to multiple rehabs and detoxes in the past. At present moment, the patient is on Lexapro as well as Remeron as well as trazodone prescribed by psychiatrist at [facility]. The patient reported that at present moment he feels very uncomfortable. The patient knows that this is not detox facility, but this senior mortgage underwriter offered tramadol for pain with hope that it might be helpful. The patient and family was asking about Suboxone treatment. This senior mortgage underwriter educated the patient about providers in the community. In regards of the patient's symptoms, the patient reported that he was using heroine and he took accidentally naltrexone, after that the patient became very agitated and restless, that is why he came to the hospital. VITAL SIGNS: Reviewed, stable. MEDICATIONS: Reviewed. Tylenol, Colace, Lexapro was started by medical team, Toradol, started Ativan, Remeron was resumed by medical team 15 mg at the nighttime. The patient is on Zosyn, Nicoderm, morphine, also tramadol will be started for pain and trazodone 100 mg at the nighttime was started by medical team, vancomycin for possible infection. LABORATORY DATA: Reviewed. Microbiology reviewed. Gram-positive cocci in chain from the blood stream. The patient went to echocardiogram. Chest x-ray and electrocardiogram, extremity ultrasound and elbow x-ray. MENTAL STATUS EXAM The patient presented to be uncomfortable, withdrawn. Flat affect. Mood described as I feel I am withdrawing. Affect was flat. Thought process was concrete. Thought content, the patient denied visual, auditory, tactile hallucinations. Denied paranoid ideation. The patient denied thoughts of harming himself or others. Denied intents or plan. Insight and judgment seems to be limited, but improving. Impulses are well controlled. IMPRESSION: Opioid use disorder, opioid withdrawals, rule out mood disorder due to general medical condition, rule out substance-induced mood disorder. PLAN: P.r.n. medications started tramadol, medical team resume antidepressant as well as Ativan. The patient was provided with information about outpatient programs as well as methadone clinic as well as Suboxone providers. The patient is not agitated, not aggressive, not in any imminent danger to self or others. We will follow up on the patient tomorrow and advise accordingly. Jennifer Casillas MD
[2018-05-15] MEDS: Piperacillin/Tazobact 3.375 gm 100 ML IVPB SCH (05:26)
[2018-05-15 07:35] LABS: BASO # 0.02 K/mm3 (0.0-2.0); BASO % 0.2 % (0.0-3.0); EOS # 0.2 (0.0-0.7); EOS % 1.9 % (1.5-5.0); GRAN # 6.29 (1.4-6.5); GRAN % 61.3 % (50.0-68.0); HEMOGLOBIN 14.2 g/dL (14.0-18.0); LYMPH % 29.1 % (22.0-35.0); MEAN CELL VOLUME 82.2 fl (80.0-105.0); MEAN CORPUSCULAR HEMOGLOBIN 28.4 pg (25.0-35.0); MEAN CORPUSCULAR HGB CONC 34.5 g/dl (31.0-37.0); MEAN PLATELET VOLUME 9.2 fl (7.0-11.0); MONO # 0.8 (0.1-0.6); MONO % 7.5 % (1.0-6.0); RED CELL DISTRIBUTION WIDTH 12.6 % (11.5-14.5); WHITE BLOOD COUNT 10.3 10^3/ul (4.5-11.0)
[2018-05-15 07:41] LABS: ALBUMIN 3.6 g/dL (3.0-4.8); ALT/SGPT 40 U/L (7-56); AST/SGOT 38 U/L (17-59); BLOOD UREA NITROGEN 6 mg/dL (7-21); CALCIUM 8.9 mg/dL (8.4-10.5); GFR NON-AFRICAN AMERICAN > 60
[2018-05-15] MEDS ORDERED: Gadodiamide 287 MG/ML VIAL (20ML) IV ONE (08:19)
[2018-05-15 08:38] VITALS: O2SAT 98
[2018-05-15] MEDS ORDERED: Potassium Chloride 20 mEq ER Tab PO ONE (09:20)
[2018-05-15] MEDS: Vancomycin 1gm in NS 250ml 1 GM/250 ML BAG IVPB SCH (10:00)
[2018-05-15] MEDS: Sodium Chloride 0.9% 1,000 ML IV SCH (10:03)
--- NOTE | 2018-05-15 10:10 | CP.PCM.PCO ---
Physician Communication Note - Physician Communication Note Physician Communication Note: pt was having MRI while this real estate underwriter rounded, as per RN no agitation/no acut Addendum Addendum: 05/15/18 10:09 pt was having MRI while this real estate underwriter rounded, as per RN no agitation/no acute is sues psychotropic meds resumed tamadol as needed discussed with mother pt was attending [facility] pt was interested in suboxone clinic, pt was provided with 's (local psychiatrist)office number will f/u q2days
--- NOTE | 2018-05-15 10:50 | MRI ---
Date of service: 05/15/2018 PROCEDURE: MRI of the right humerus with and without contrast HISTORY: Rt Arm OM r/o, hx ivdu COMPARISON: TECHNIQUE: MRI of the right humerus was performed in multiple planes using multiple pulse sequences. 20 cc of Omniscan were injected FINDINGS: There is no marrow edema or enhancement to suggest osteomyelitis. There is no muscular edema or enhancement. There is no significant subcutaneous edema. IMPRESSION: No evidence of osteomyelitis
--- NOTE | 2018-05-15 13:22 | CP.PCM.CON ---
History of Present Illness - History of Present Illness History of Present Illness: General Surgery consult note for Dr. Cui Patient is a 28 year old male with PMH of IVDA, depression, and insomnia presenting with right antecubital abscess. Patient states he was trying to inject his arm with heroin but missed and injected his elbow instead. Patient reports this is the second time he has had an abscess in his arm secondary to IVDA. Bedside I&D was performed in ED. MRI of RUE showed no evidence of osteomyelitis. Surgery was consulted for wound care management prior to discharge. Patient denies fevers, chills, shortness of breath, chest pain, abdominal pain, or urinary symptoms. PMHx: depression, insomnia, IVDA PSHx: R thumb fracture 2012 PHospitalization: multiple overdoses- never been intubated Allergies: NKDA SocHx: admits to EtOH use in the past; smokes 1 ppd for 10 years; injects 2-3 bags of heroin once/day since 2014. Last use of heroin was day prior to admission on 05/10/18. FamHx: non-contributory PMD: none Past Patient History - Infectious Disease Hx of Infectious Diseases: None - Tetanus Immunizations Tetanus Immunization: Up to Date - Past Social History Smoking Status: Heavy Smoker > 10 Cigarettes Daily - CARDIAC Hx Cardiac Disorders: No Hx Hypertension: No - PULMONARY Hx Tuberculosis: No - NEUROLOGICAL HX Cerebrovascular Accident: No Hx Seizures: No - HEENT Hx HEENT Problems: No - RENAL Hx Chronic Kidney Disease: No - ENDOCRINE/METABOLIC Hx Endocrine Disorders: No - HEMATOLOGICAL/ONCOLOGICAL Hx Cancer: No - INTEGUMENTARY Hx Dermatological Problems: No Hx Basil Cell: No - MUSCULOSKELETAL/RHEUMATOLOGICAL Hx Musculoskeletal Disorders: Yes Hx Falls: No Hx Fractures: Yes (job related injury fx r thumb 1 yr ago) - GASTROINTESTINAL Hx Gastrointestinal Disorders: No - GENITOURINARY/GYNECOLOGICAL Hx Sexually Transmitted Disorders: No - PSYCHIATRIC Hx Psychophysiologic Disorder: Yes Hx Anxiety: Yes Hx Depression: Yes Hx Substance Use: Yes (heroin) - SURGICAL HISTORY Hx Surgeries: No - ANESTHESIA Hx Anesthesia: No Meds Allergies/Adverse Reactions: Allergies Allergy/AdvReac Type Severity Reaction Status Date / Time No Known Allergies Allergy Verified 04/21/17 09:21 - Medications Medications: Current Medications Acetaminophen (Tylenol 325mg Tab) 650 mg PO Q6H PRN PRN Reason: Pain, Mild (1-3) Last Admin: 05/13/18 00:27 Dose: 650 mg Docusate Sodium (Colace) 100 mg PO BID [facility] Last Admin: 05/15/18 09:59 Dose: 100 mg Escitalopram Oxalate (Lexapro) 10 mg PO DAILY [facility] Last Admin: 05/15/18 09:59 Dose: 10 mg Sodium Chloride (Sodium Chloride 0.9%) 1,000 mls @ 100 mls/hr IV .Q10H [facility] Last Admin: 05/15/18 10:03 Dose: 100 mls/hr Lorazepam (Ativan) 1 mg IVP Q6H PRN; Protocol PRN Reason: Agitation Last Admin: 05/14/18 15:06 Dose: 1 mg Mirtazapine (Remeron) 15 mg PO HS [facility] Last Admin: 05/14/18 22:05 Dose: 15 mg Morphine Sulfate (Morphine) 1 mg IVP Q8H PRN PRN Reason: Pain, severe (8-10) Last Admin: 05/14/18 22:19 Dose: 1 mg Nicotine (Nicoderm Cq) 1 patch TD DAILY [facility] Last Admin: 05/15/18 09:59 Dose: 1 patch Tramadol HCl (Ultram) 50 mg PO TID PRN PRN Reason: severe pain >8/10 Last Admin: 05/14/18 18:24 Dose: 50 mg Trazodone HCl (Desyrel) 100 mg PO [facility] Last Admin: 05/14/18 22:05 Dose: 100 mg Physical Exam - Constitutional Appears: Well, Non-toxic, No Acute Distress - Head Exam Head Exam: ATRAUMATIC, NORMOCEPHALIC - ENT Exam ENT Exam: Mucous Membranes Moist - Respiratory Exam Respiratory Exam: NORMAL BREATHING PATTERN. absent: Respiratory Distress - Cardiovascular Exam Cardiovascular Exam: RRR. absent: Bradycardia, Tachycardia - GI/Abdominal Exam GI & Abdominal Exam: Soft. absent: Distended, Firm, Tenderness - Extremities Exam Extremities exam: Positive for: full ROM, normal capillary refill Additional comments: Right anterior antecubital wound measuring 1 cm x 1cm, deep, draining sero- sanguinous fluid. Dressing in place, C/D/I. Upper extremity pulses are intact bilaterally. - Neurological Exam Neurological exam: Alert, Oriented x3 - Psychiatric Exam Psychiatric exam: Normal Affect, Normal Mood - Skin Skin Exam: Dry, Normal Color, Warm Results - Vital Signs Recent Vital Signs: Last Vital Signs Temp 98.2 F 05/15/18 08:36 Pulse 81 05/15/18 08:36 Resp 19 05/15/18 08:36 BP 123/83 05/15/18 08:36 Pulse Ox 98 05/15/18 08:36 - Labs Result Diagrams: 05/15/18 07:15 05/15/18 07:15 Labs: Laboratory Results - last 24 hr 05/15/18 05/15/18 07:15 07:15 WBC 10.3 RBC 5.00 Hgb 14.2 Hct 41.1 L MCV 82.2 MCH 28.4 MCHC 34.5 RDW 12.6 Plt Count 301 MPV 9.2 Gran % 61.3 Lymph % (Auto) 29.1 [place] % (Auto) 7.5 H Eos % (Auto) 1.9 Baso % (Auto) 0.2 Gran # 6.29 Lymph # (Auto) 3.0 [place] # (Auto) 0.8 H Eos # (Auto) 0.2 Baso # (Auto) 0.02 Sodium 140 Potassium 3.5 L Chloride 108 H Carbon Dioxide 25 Anion Gap 11 BUN 6 L Creatinine 0.9 Est GFR ( Amer) > 60 Est GFR (Non-Af Amer) > 60 Random Glucose 98 Calcium 8.9 Total Bilirubin 0.3 AST 38 ALT 40 Alkaline Phosphatase 44 Total Protein 7.0 Albumin 3.6 Globulin 3.4 Albumin/Globulin Ratio 1.0 L Assessment & Plan - Assessment and Plan (Free Text) Assessment: Patient is a 28 year old male presenting with cellulitis of right forearm/antecubital area of IVD injection site; bedside I&D was performed in ED. MRI of RUE showed no evidence of osteomyelitis. Surgery was consulted for wound care management. Plan: - Loosely pack wound twice daily, keep wound clean and dry - Clean wound with soap and water twice daily - Continue antibiotics as per primary team recs - Follow up with primary care doctor for further wound care recs Case discussed with Dr. See Brower PGY-1
[2018-05-15 17:26] VITALS: BP 141/95; PULSE 70; RESP 20; TEMP 98
--- NOTE | 2018-05-15 22:07 | CP.PCM.PN ---
Subjective - Date & Time of Evaluation Date of Evaluation: 05/15/18 Time of Evaluation: 13:00 - Subjective Subjective: Right elbow feels much better, no fevers, not in distress, no diarrhea. Objective - Vital Signs/Intake and Output Vital Signs (last 24 hours): Temp Pulse Resp BP Pulse Ox 97.9 F 75 20 127/92 H 99 05/14/18 16:14 05/14/18 16:14 05/14/18 16:14 05/14/18 16:14 05/14/18 16:14 - Medications Medications: Current Medications Acetaminophen (Tylenol 325mg Tab) 650 mg PO Q6H PRN PRN Reason: Pain, Mild (1-3) Last Admin: 05/13/18 00:27 Dose: 650 mg Docusate Sodium (Colace) 100 mg PO BID [facility] Last Admin: 05/14/18 18:23 Dose: 100 mg Escitalopram Oxalate (Lexapro) 10 mg PO DAILY [facility] Last Admin: 05/14/18 09:46 Dose: 10 mg Vancomycin HCl (Vancomycin 1gm) 1 gm in 250 mls @ 167 mls/hr IVPB Q12H [facility]; Protocol Last Admin: 05/14/18 09:52 Dose: 167 mls/hr Sodium Chloride (Sodium Chloride 0.9%) 1,000 mls @ 100 mls/hr IV .Q10H [facility] Last Admin: 05/13/18 09:01 Dose: 100 mls/hr Piperacillin Sod/Tazobactam Sod (Zosyn 3.375 In Ns 100ml) 100 mls @ 25 mls/hr IVPB Q8 [facility]; Protocol Last Admin: 05/14/18 15:07 Dose: 25 mls/hr Lorazepam (Ativan) 1 mg IVP Q6H PRN; Protocol PRN Reason: Agitation Last Admin: 05/14/18 15:06 Dose: 1 mg Mirtazapine (Remeron) 15 mg PO HS [facility] Last Admin: 05/13/18 21:24 Dose: 15 mg Morphine Sulfate (Morphine) 1 mg IVP Q8H PRN PRN Reason: Pain, severe (8-10) Last Admin: 05/14/18 12:37 Dose: 1 mg Nicotine (Nicoderm Cq) 1 patch TD DAILY [facility] Last Admin: 05/14/18 09:48 Dose: 1 patch Tramadol HCl (Ultram) 50 mg PO TID PRN PRN Reason: severe pain >8/10 Last Admin: 05/14/18 18:24 Dose: 50 mg Trazodone HCl (Desyrel) 100 mg PO HS [facility] Last Admin: 05/13/18 21:24 Dose: 100 mg - Labs Labs: 05/14/18 05:45 05/14/18 05:45 - Constitutional Appears: No Acute Distress - Head Exam Head Exam: NORMAL INSPECTION - Respiratory Exam Respiratory Exam: Decreased Breath Sounds - Cardiovascular Exam Cardiovascular Exam: +S1, +S2 - GI/Abdominal Exam GI & Abdominal Exam: Soft. absent: Tenderness - Extremities Exam Additional comments: left arm with dressings in place Assessment and Plan - Assessment and Plan (Free Text) Plan: Assessment right elbow skin and skin structure infection with abscess S/P I and D, with Strep mutans bacteremia, with no evidence of vegetations on 2D echo history of IV drug use Plan on Vancomycin and Zosyn and can be switched to Rocephin should get up to 2 weeks total antibiotics
--- NOTE | 2018-05-15 23:00 | CP.PCM.DIS ---
Provider - Provider Date of Admission: 05/12/18 16:26 Attending physician: Carlene Donovan DO Primary care physician: NO FAMILY PROVIDER Consults: Yousuf - Jennifer CAMARENA - Jane Surgery Daryl Cui Time Spent in preparation of Discharge (in minutes): 45 Diagnosis - Discharge Diagnosis (1) Cellulitis and abscess of upper arm and forearm Status: Acute (2) Constipation Status: Acute (3) Drug abuse Status: Acute Hospital Course - Lab Results Lab Results: Micro Results 05/11/18 18:30 Blood-Venous Blood Culture - Preliminary NO GROWTH AFTER 4 DAYS 05/14/18 16:57 Incision Site Gram Stain - Final 05/14/18 16:57 Incision Site Wound Culture - Preliminary NO GROWTH AFTER 24 HOURS 05/13/18 11:30 Blood-Venous Blood Culture - Preliminary NO GROWTH AFTER 48 HOURS 05/11/18 18:50 Blood-Venous S.aureus & Coag-Neg Staph PNA FISH - Final 05/11/18 18:50 Blood-Venous Blood Culture - Final Streptococcus Mutans 05/11/18 18:50 Blood-Venous Gram Stain - Final Most Recent Lab Values WBC 10.3 10^3/ul (4.5-11.0) 05/15/18 07:15 RBC 5.00 10^6/uL (3.5-6.1) 05/15/18 07:15 Hgb 14.2 g/dL (14.0-18.0) 05/15/18 07:15 Hct 41.1 % (42.0-52.0) L 05/15/18 07:15 MCV 82.2 fl (80.0-105.0) 05/15/18 07:15 MCH 28.4 pg (25.0-35.0) 05/15/18 07:15 MCHC 34.5 g/dl (31.0-37.0) 05/15/18 07:15 RDW 12.6 % (11.5-14.5) 05/15/18 07:15 Plt Count 301 10^3/uL (120.0-450.0) 05/15/18 07:15 MPV 9.2 fl (7.0-11.0) 05/15/18 07:15 Gran % 61.3 % (50.0-68.0) 05/15/18 07:15 Lymph % (Auto) 29.1 % (22.0-35.0) 05/15/18 07:15 [place] % (Auto) 7.5 % (1.0-6.0) H 05/15/18 07:15 Eos % (Auto) 1.9 % (1.5-5.0) 05/15/18 07:15 Baso % (Auto) 0.2 % (0.0-3.0) 05/15/18 07:15 Gran # 6.29 (1.4-6.5) 05/15/18 07:15 Lymph # (Auto) 3.0 (1.2-3.4) 05/15/18 07:15 [place] # (Auto) 0.8 (0.1-0.6) H 05/15/18 07:15 Eos # (Auto) 0.2 (0.0-0.7) 05/15/18 07:15 Baso # (Auto) 0.02 K/mm3 (0.0-2.0) 05/15/18 07:15 pO2 33 mm/Hg (30-55) 05/11/18 18:45 VBG pH 7.26 (7.32-7.43) L 05/11/18 18:45 VBG pCO2 72.0 (40-60) H* 05/11/18 18:45 VBG HCO3 32.3 mmol/l (21-28) H 05/11/18 18:45 VBG Total CO2 34.5 mmol.L (22-28) H 05/11/18 18:45 VBG O2 Sat (Calc) 60.6 % (40-65) 05/11/18 18:45 VBG Base Excess 3.0 mmol/L (0.0-2.0) H 05/11/18 18:45 VBG Potassium 4.2 mmol/L (3.6-5.2) 05/11/18 18:45 Sodium 134.0 mmol/L (132-148) 05/11/18 18:45 Chloride 98.0 mmol/L (98-107) 05/11/18 18:45 Glucose 118 mg/dl (75-110) H 05/11/18 18:45 Lactate 1.2 mmol/L (0.7-2.1) 05/11/18 18:45 FiO2 21.0 % 05/11/18 18:45 Sodium 140 mmol/L (132-148) 05/15/18 07:15 Potassium 3.5 mmol/L (3.6-5.0) L 05/15/18 07:15 Chloride 108 mmol/L (98-107) H 05/15/18 07:15 Carbon Dioxide 25 mmol/L (21-33) 05/15/18 07:15 Anion Gap 11 (10-20) 05/15/18 07:15 BUN 6 mg/dL (7-21) L 05/15/18 07:15 Creatinine 0.9 mg/dl (0.8-1.5) 05/15/18 07:15 Est GFR ( Amer) > 60 05/15/18 07:15 Est GFR (Non-Af Amer) > 60 05/15/18 07:15 Random Glucose 98 mg/dL (70-110) 05/15/18 07:15 Calcium 8.9 mg/dL (8.4-10.5) 05/15/18 07:15 Phosphorus 3.4 mg/dL (2.5-4.5) 05/12/18 08:00 Magnesium 2.3 mg/dL (1.7-2.2) H 05/12/18 08:00 Total Bilirubin 0.3 mg/dL (0.2-1.3) 05/15/18 07:15 AST 38 U/L (17-59) 05/15/18 07:15 ALT 40 U/L (7-56) 05/15/18 07:15 Alkaline Phosphatase 44 U/L (38-126) 05/15/18 07:15 Total Protein 7.0 g/dL (5.8-8.3) 05/15/18 07:15 Albumin 3.6 g/dL (3.0-4.8) 05/15/18 07:15 Globulin 3.4 gm/dL 05/15/18 07:15 Albumin/Globulin Ratio 1.0 (1.1-1.8) L 05/15/18 07:15 Procalcitonin 0.10 NG/ML (0.19-0.49) L 05/11/18 20:00 Venous Blood Potassium 4.2 mmol/L (3.6-5.2) 05/11/18 18:45 Hepatitis A IgM Ab Negative (NEGATIVE) 05/12/18 08:30 Hep Bs Antigen Negative (NEGATIVE) 05/12/18 08:30 Hep B Core IgM Ab Negative (NEGATIVE) 05/12/18 08:30 Hepatitis C Antibody Reactive (NEGATIVE) 05/12/18 08:30 HIV 1&2 Ag/Ab, 4th Gen Nonreactive (Nonreactive) 05/12/18 08:00 Influenza Typ A,B (EIA) Negative for flu a/b (NEGATIVE) 05/11/18 21:40 - Hospital Course Hospital Course: Freedom Donovan PGY1 Internal Medicine Dispatcher Radio - Hospital Discharge Summary 28 y/o male PMHx IVDA, depression, and insomnia presents with right elbow pain and swelling that started 3 days ago. Patient reported he was trying to inject his arm with heroin but missed and injected his elbow instead. On exam patient was noted to have an abscess in his R antecubital fossa and I&D was performed at bedside in ED. Wound was then packed w/ iodoform. No wound culture performed from site at time of I&D however blood cultures drawn. 1/2 cultures grew streptococcus mutans. Repeat cultures have been negative to date. Wound culture performed later into hospital course; no growth to date. ID was consulted and recommended IV Vanc + Zosyn. An x-ray of the right elbow revealed no acute fracture or bone destruction. Bilateral upper extremity ultrasound revealed no evidence of DVT. On admission, WBC was elevated however trended downwards throughout hospital course. HIV testing, Hepatitis A and B were negative however Hepatitis C was positive. An MRI of the right arm revealed no evidence of osteomyelitis. The patient has a history of IV drug abuse with heroine. He had mild symptoms of withdrawal on Day 2 of his hospitalization with leg tremors for which he received Ativan. The patient complained of abdominal pain and diarrhea as well which improved. Psychiatry was consulted and advised the patient to receive counseling and given information regarding a suboxone clinic. Surgery saw patient and taught him how to change iodoform packing and care for abscess. On 10 PM patient stated he wanted to leave AMA. Patient was subsequently counseled on risks of leaving AMA and benefits of continued in patient management. Patient still decided to leave AMA. ID was made aware of patient's decision and Rx for Clindamycin 450mg PO Q8H x 7 days was given to patient. Discharge Exam - Head Exam Head Exam: NORMAL INSPECTION Discharge Plan - Follow Up Plan Condition: STABLE Disposition: AGAINST MEDICAL ADVICE
--- NOTE | 2018-05-16 09:46 | CP.PCM.PCO ---
Physician Communication Note - Physician Communication Note Physician Communication Note: pt was d/c
== END 2018-05-15 19:18 | disposition left against medical advice (07) | DRG 563 ==
LOC: ED 16:35 → ERH 19:54 → 3RNO 23:04 → OBSVTOIN 05-12 16:26 → 3RSO 05-14 18:15
PROVIDERS: ADMIT Hospitalist; ATTEND Hospitalist
PROC: 0J9G3ZX Drainage of Right Lower Arm Subcutaneous Tissue and Fascia, Percutaneous Approach, Diagnostic (ICD-10-PCS; principal; 2018-05-11)
DX: L02.413 Cutaneous abscess of right upper limb (principal); R78.81 Bacteremia; F11.10 Opioid abuse, uncomplicated; L03.113 Cellulitis of right upper limb; B95.4 Other streptococcus as the cause of diseases classified elsewhere; F17.210 Nicotine dependence, cigarettes, uncomplicated; G47.00 Insomnia, unspecified; F32.9 Major depressive disorder, single episode, unspecified; K59.00 Constipation, unspecified; I95.9 Hypotension, unspecified; Z86.19 Personal history of other infectious and parasitic diseases

== ENCOUNTER 2018-05-16 13:45 | Emergency (ER) | payer MEDICAID ==
[2018-05-16 13:56] VITALS: BMI 32.3
[2018-05-16 14:16] VITALS: RESP 18
--- NOTE | 2018-05-16 15:18 | ED PDOC ---
Arrival/HPI - General Chief Complaint: Wound Check Time Seen by Provider: 05/16/18 13:49 Past Medical History - Past History Past History: No Previous - Infectious Disease Hx of Infectious Diseases: None - Tetanus Immunization Tetanus Immunization: Up to Date - Past Medical History Past Medical History: No Previous - Cardiac Hx Cardiac Disorders: No Hx Hypertension: No - Pulmonary Hx Tuberculosis: No - Neurological HX Cerebrovascular Accident: No Hx Seizures: No - HEENT Hx HEENT Disorder: No - Renal Hx Renal Disorder: No - Endocrine/Metabolic Hx Endocrine Disorders: No - Hematological/Oncological Hx Cancer: No - Integumentary Hx Dermatological Disorder: No Hx Basal Cell Carcinoma: No - Musculoskeletal/Rheumatological Hx Musculoskeletal Disorders: Yes Hx Falls: No Hx Fractures: Yes (job related injury fx r thumb 1 yr ago) - Gastrointestinal Hx Gastrointestinal Disorders: No - Genitourinary/Gynecological Hx Sexually Transmitted Diseases: No - Psychiatric Hx Psychophysiologic Disorder: Yes Hx Anxiety: Yes Hx Depression: Yes Hx Substance Use: Yes (heroin) - Past Surgical History Past Surgical History: No Previous - Anesthesia Hx Anesthesia: No - Suicidal Assessment Feels Threatened In Home Enviroment: No Family/Social History Smoking Status: Heavy Smoker > 10 Cigarettes Daily Hx Alcohol Use: No Hx Substance Use: Yes (heroin) Substance used: heroin, past history Hx Substance Use Treatment: No Allergies/Home Meds Allergies/Adverse Reactions: Allergies No Known Allergies Allergy (Verified 04/21/17 09:21) Home Medications: Home Meds Medication Instructions Recorded Confirmed Buprenorphine HCl/Naloxone HCl 1 each SL DAILY 06/14/17 06/14/17 [Suboxone 8 mg-2 mg Sl Film] Escitalopram [Lexapro] 10 mg PO DAILY 05/13/18 05/13/18 Mirtazapine [Remeron] 15 mg PO HS 05/13/18 05/13/18 traZODone [trazodone Hydrochloride] 100 mg PO HS 05/13/18 05/13/18 Physical Exam Vital Signs Temp Pulse Resp BP Pulse Ox 05/16/18 14:15 98.2 F 85 18 104/63 98 Disposition/Present on Arrival - Present on Arrival Any Indicators Present on Arrival: No History of DVT/PE: No History of Uncontrolled Diabetes: No Urinary Catheter: No History of Decub. Ulcer: No History Surgical Site Infection Following: None - Disposition Have Diagnosis and Disposition been Completed?: Yes Diagnosis: Abscess of arm, right, Wound check, abscess Disposition: RELEASED IN POLICE CUSTODY Disposition Time: 15:11 Patient Plan: Discharge Patient Problems: Current Active Problems Problem Status Onset Abscess of arm, right Acute Wound check, abscess Acute Condition: STABLE Discharge Instructions (ExitCare): Abscess Drainage, Percutaneous (DC) Print Language: KINYARWANDA Additional Instructions: PLEASE CONTINUE DRESSING CHANGES TWICE A DAY PLEASE SEE A PHYSICIAN FOR WOUND CHANGE IN 5 DAYS DO NOT TAKE OUT PACKING WITHIN ARM UNLESS INSTRUCTED BY THE PHYSICIAN Prescriptions: Clindamycin [Cleocin] 300 mg PO TID 7 Days #21 cap Referrals: Khalida Casey MD [Medical Doctor] - Follow up with primary [facility] at [facility] [place] [Outside] - Follow up with primary
--- NOTE | 2018-05-16 15:19 | ED PDOC ---
Arrival/HPI - General Chief Complaint: Wound Check Time Seen by Provider: 05/16/18 13:49 Historian: Patient - History of Present Illness Narrative History of Present Illness (Text): 05/16/18 15:13 28 year old male, with no significant past medical history, who presents to the ED for a wound check. Patient visited the ED 4 days ago for an abscess that was drained, cleaned, and dressed. Patient was admitted to the hospital and d/c 05/16/18. Patient requesting cleaning and redressing, along with antibiotics. Patient is in police custody. Patient denies any irritation around abscess, tingling to RUE, chest pain, sob, fever, chills, or any other complaints. Time/Duration: < week (4 days) Symptom Onset: Gradual Symptom Course: Improving Activities at Onset: Light Context: Home Past Medical History - Provider Review Nursing Documentation Reviewed: Yes - Past History Past History: No Previous - Infectious Disease Hx of Infectious Diseases: None - Tetanus Immunization Tetanus Immunization: Up to Date - Past Medical History Past Medical History: No Previous - Cardiac Hx Cardiac Disorders: No Hx Hypertension: No - Pulmonary Hx Tuberculosis: No - Neurological HX Cerebrovascular Accident: No Hx Seizures: No - HEENT Hx HEENT Disorder: No - Renal Hx Renal Disorder: No - Endocrine/Metabolic Hx Endocrine Disorders: No - Hematological/Oncological Hx Cancer: No - Integumentary Hx Dermatological Disorder: No Hx Basal Cell Carcinoma: No - Musculoskeletal/Rheumatological Hx Musculoskeletal Disorders: Yes Hx Falls: No Hx Fractures: Yes (job related injury fx r thumb 1 yr ago) - Gastrointestinal Hx Gastrointestinal Disorders: No - Genitourinary/Gynecological Hx Sexually Transmitted Diseases: No - Psychiatric Hx Psychophysiologic Disorder: Yes Hx Anxiety: Yes Hx Depression: Yes Hx Substance Use: Yes (heroin) - Past Surgical History Past Surgical History: No Previous - Anesthesia Hx Anesthesia: No - Suicidal Assessment Feels Threatened In Home Enviroment: No Family/Social History - Physician Review Nursing Documentation Reviewed: Yes Family/Social History: No Known Family HX Smoking Status: Heavy Smoker > 10 Cigarettes Daily Hx Alcohol Use: No Hx Substance Use: Yes (heroin) Substance used: heroin, past history Hx Substance Use Treatment: No Allergies/Home Meds Allergies/Adverse Reactions: Allergies No Known Allergies Allergy (Verified 04/21/17 09:21) Home Medications: Home Meds Medication Instructions Recorded Confirmed Buprenorphine HCl/Naloxone HCl 1 each SL DAILY 06/14/17 06/14/17 [Suboxone 8 mg-2 mg Sl Film] Escitalopram [Lexapro] 10 mg PO DAILY 05/13/18 05/13/18 Mirtazapine [Remeron] 15 mg PO HS 05/13/18 05/13/18 traZODone [trazodone Hydrochloride] 100 mg PO HS 05/13/18 05/13/18 Review of Systems - Physician Review All systems were reviewed & negative as marked: Yes - Review of Systems Constitutional: Normal Eyes: Normal ENT: Normal Respiratory: Normal. absent: SOB, Cough Cardiovascular: Normal. absent: Chest Pain Gastrointestinal: Normal. absent: Abdominal Pain Genitourinary Male: Normal. absent: Dysuria, Frequency, Hematuria Musculoskeletal: Normal. absent: Back Pain, Neck Pain Skin: Abscess (right arm) Neurological: Normal. absent: Headache, Dizziness Endocrine: Normal Hemo/Lymphatic: Normal Psychiatric: Normal Physical Exam Vital Signs Reviewed: Yes Vital Signs Temp Pulse Resp BP Pulse Ox 05/16/18 14:15 98.2 F 85 18 104/63 98 Temperature: Afebrile Blood Pressure: Normal Pulse: Regular Respiratory Rate: Normal Appearance: Positive for: Well-Appearing, Non-Toxic, Comfortable Pain Distress: None Mental Status: Positive for: Alert and Oriented X 3 - Systems Exam Head: Present: Atraumatic, Normocephalic Pupils: Present: PERRL Extroacular Muscles: Present: EOMI Conjunctiva: Present: Normal Mouth: Present: Moist Mucous Membranes Neck: Present: Normal Range of Motion Respiratory/Chest: Present: Clear to Auscultation, Good Air Exchange. No: Respiratory Distress, Accessory Muscle Use Cardiovascular: Present: Regular Rate and Rhythm, Normal S1, S2. No: Murmurs Abdomen: No: Tenderness, Distention, Peritoneal Signs Back: Present: Normal Inspection Upper Extremity: Present: Normal Inspection. No: Cyanosis, Edema Lower Extremity: Present: Normal Inspection. No: Edema Neurological: Present: GCS=15, CN II-XII Intact, Speech Normal Skin: Present: Warm, Dry, Erythematous (around rt anticubital area), Abscess (right anticubital area; packing noted w/ AC), Other (no tenderness to palpation). No: Rashes Psychiatric: Present: Alert, Oriented x 3, Normal Insight, Normal Concentration Medical Decision Making ED Course and Treatment: 05/16/18 15:23 Impression: 28 year old male presents to the ED for a wound check s/p abscess drainage, packing, and dressing. Plan: --Wound care -- reassess and disposition Progress Notes: 05/17/18 16:23 Wound repacked with dressings applied. Patient advised against removing packing and to change the outside dressings. Patient is medically stable & cleared for release into police custody. - Scribe Statement The provider has reviewed the documentation as recorded by the Scribe Stacie Llamas All medical record entries made by the Scribe were at my direction and personally dictated by me. I have reviewed the chart and agree that the record accurately reflects my personal performance of the history, physical exam, medical decision making, and the department course for this patient. I have also personally directed, reviewed, and agree with the discharge instructions and disposition. Disposition/Present on Arrival - Present on Arrival Any Indicators Present on Arrival: No History of DVT/PE: No History of Uncontrolled Diabetes: No Urinary Catheter: No History of Decub. Ulcer: No History Surgical Site Infection Following: None - Disposition Have Diagnosis and Disposition been Completed?: Yes Diagnosis: Abscess of arm, right, Wound check, abscess Disposition: RELEASED IN POLICE CUSTODY Disposition Time: 17:00 Patient Plan: Discharge Condition: STABLE Discharge Instructions (ExitCare): Abscess Drainage, Percutaneous (DC) Print Language: MACEDONIAN Additional Instructions: MEDICALLY CLEARED FOR INCARCERATION! PLEASE CONTINUE DRESSING CHANGES TWICE A DAY PLEASE SEE A PHYSICIAN FOR WOUND CHANGE IN 5 DAYS DO NOT TAKE OUT PACKING WITHIN ARM UNLESS INSTRUCTED BY THE PHYSICIAN Prescriptions: Clindamycin [Cleocin] 300 mg PO TID 7 Days #21 cap Referrals: [facility] at [facility] [place] [Outside] - Follow up with primary Khalida Casey MD [Medical Doctor] - Follow up with primary Forms: [employer] (Italian)
[2018-05-16 15:34] VITALS: BP 132/79; PULSE 78; TEMP 98.3; O2SAT 99
== END 2018-05-16 15:32 ==
LOC: ED 13:45
DX: Z48.817 Encounter for surgical aftercare following surgery on the skin and subcutaneous tissue (principal)